=== PATIENT | female | born 1930 | race Caucasian/White ===

== ENCOUNTER 2018-02-19 19:35 | Emergency (ER) | payer MEDICARE, OTHER ==
[~2018-02-19] VITALS: Ht 162.6 cm; Wt 54.4 kg
[~2018-02-19 19:35] MED LIST: CALCIUM COMPLETE PO; CYCLOBENZAPRINE5 MG PO; CYMBALTA PO; FENOFIBRATE145 MG PO; GLIMEPIRIDE4 MG PO; LOSARTAN POTAS100 MG PO; METFORMIN HCL500 MG PO; METOPROLOL TART50 MG PO; OMEPRAZOLE40 MG PO; POTASSIUM PO; TRAMADOL PO
--- NOTE | 2018-02-19 21:08 | Diagnostic Imaging Report ---
Examination: CT head without contrast Clinical Indication: Fall. Head injury. Technique: Transaxial noncontrast images from the skull base through the vertex were obtained. Sagittal and coronal reformatted images were done. Comparison: None. Findings: Scalp: No abnormalities. Bones: Intact. No fractures. No blastic or lytic lesions. Brain sulci: Moderate volume loss for patient's age. Ventricles: No hydrocephalus. Extra-axial space: No abnormalities. Parenchyma: There are confluent areas of low-attenuation within subcortical and periventricular white matter, nonspecific, but could represent microvascular ischemic disease. No masses, hemorrhage, or acute or chronic cortical based vascular insults. Suprasellar region: No abnormalities. Craniocervical junction: The foramen magnum is patent. No Chiari one malformation. Incidental findings: Atherosclerotic calcification of the cavernous and supraclinoid internal carotid and V4 segments of the bilateral vertebral arteries. Impression: 1. No acute intracranial finding. 2. Moderate to severe chronic microvascular ischemic change and moderate volume loss. Signed by: Dr. Sara Stiles M.D. on 02/19/2018 9:04 PM
--- NOTE | 2018-02-19 21:12 | Diagnostic Imaging Report ---
Examination: CT CERVICAL SPINE WITHOUT CONTRAST HISTORY:Neck pain. Fall. COMPARISON:None. TECHNIQUE: Multidetector helical axial images were obtained without contrast from the foramen magnum to T1. Coronal and sagittal reformatted images were done. Bone and soft tissue windows were evaluated. FINDINGS: Alignment:Normal alignment and lordosis. Vertebrae: Normal height and density. No acute fracture, infection or neoplasm. Disc space heights: Normal height. Caliber of spinal canal: Developmentally normal. Posterior fossa and craniocervical junction: Foramen magnum patent. No Chiari 1 malformation. Soft tissues: Atherosclerotic calcification of the bilateral common and proximal cervical internal carotid arteries and carotid bifurcations. Degenerative changes: Diffuse disc bulges from C4 through C7 without canal stenosis. MIld right facet arthropathy from C3 through C5 and on the left from C2 through C7. IMPRESSION: No acute abnormalities. Signed by: Dr. Sara Stiles M.D. on 02/19/2018 9:08 PM
--- NOTE | 2018-02-19 21:45 | Diagnostic Imaging Report ---
EXAM: PELVIS AP 1-2 VIEWS INDICATION: Fall, lower back pain COMPARISON: None FINDINGS: BONES: No acute fractures. JOINTS: No malalignment. SOFT TISSUES: Calcified injection granuloma projects over the right iliac bone. IMPRESSION: No evidence of an acute pelvic fracture. Signed by: Dr. Ama Drake M.D. on 02/19/2018 9:41 PM
--- NOTE | 2018-02-19 21:47 | Diagnostic Imaging Report ---
EXAM: LUMBAR SPINE, AP, lateral, bilateral oblique and coned lateral view INDICATION: Fall, back pain COMPARISON: None FINDINGS: BONES: 6 lumbar type vertebral bodies. Grade 1 anterolisthesis of L4 with respect to L5. Chronic appearing compression deformities of approximately 50% each of the L1 and L2 vertebral bodies. No lytic or blastic lesions. DISCS: Degenerative disc predominantly at L6/S1 and L1/L2 JOINTS: Bilateral facet arthropathy predominantly L4/L5 L5/L6 and L6/S1. SOFT TISSUES: Unremarkable IMPRESSION: Chronic appearing compression fractures and degenerative changes as described above. Signed by: Dr. Ama Drake M.D. on 02/19/2018 9:44 PM
[2018-02-19 23:32] VITALS: BP 154/88
== END 2018-02-19 23:34 | disposition home or self-care (01) ==
LOC: ER 19:35
DX: S00.83XA Contusion of other part of head, initial encounter (principal); S00.81XA Abrasion of other part of head, initial encounter; M54.2 Cervicalgia; M54.5 Low back pain; W01.0XXA Fall on same level from slipping, tripping and stumbling without subsequent striking against object, initial encounter; Y92.008 Other place in unspecified non-institutional (private) residence as the place of occurrence of the external cause; I10 Essential (primary) hypertension; E11.9 Type 2 diabetes mellitus without complications
CPT/HCPCS: 70450; 72110; 72125; 72170; 99283

== ENCOUNTER 2018-12-02 09:29 | Observation (INO) | payer MEDICARE, OTHER ==
[~2018-12-02] VITALS: Ht 162.6 cm; Wt 49.9 kg
--- OUTSIDE RECORDS SUMMARY | 2018-12-02 09:32 | XMS REPORT | Clinical Summary ---
Author Author [facility] Organization [facility] Address Unknown Phone Unavailable Care Team Providers Care Roll Slicing Machine Tender Name Role Phone Elpidio Walsh MD PCP Allergies No Known Allergies Medications End Date Status Medication Sig Dispensed Refills Start Date Active omeprazole (PriLOSEC) 40 0 MG capsule 7 Active amLODIPine (NORVASC) 5 mg 0 tablet 7 Active glimepiride (AMARYL) 4 MG 0 tablet 7 Active metoprolol tartrate 0 (LOPRESSOR) 50 mg tablet 7 Active meclizine (ANTIVERT) 12.5 0 mg tablet 7 Active baclofen (LIORESAL) 10 MG 0 tablet 7 Active aspirin (ECOTRIN) 81 MG Take 81 mg by 0 enteric coated tablet mouth daily. Active Problems Not on file Family History Medical History Relation Name Comments Breast cancer Sister Relation Name Status Comments Sister Social History Date Tobacco Use Types Packs/Day Years Used Never Smoker Alcohol Use Drinks/Week oz/Week Comments Defer Sex Assigned at Date Recorded Not on file Industry Job Start Date Occupation Not on file Not on file Not on file Travel End Travel History Travel Start No recent travel history available. Last Filed Vital Signs Not on file Plan of Treatment Health Maintenance Due Date Last Done Comments SHINGLES VACCINES (#1) 1979 65+ PNEUMOCOCCAL VACCINE 1994 (1 of 2 - PCV13) PNEUMOCOCCAL 1994 POLYSACCHARIDE VACCINE AGE 65 AND OVER INFLUENZA VACCINE 02/11/2019 Results Not on fileafter 12/01/2017 Insurance Type Payer Benefit Subscriber ID Effective Phone Address Plan / Dates Group Medicare MEDICARE MEDICARE xxxxxxxxxx 1994-P NADE[place], PART A AND resent [place] B PPO CIGNA CIGNA PPO xxxxxxxxxxx 2004-P resent Luh Kelsey Third Self 1930 [phone] (Home) [address] [place] [id number] Liability Advance Directives Patient has advance care planning documents on file. For more information, kenya calzada contact: Nadeem Munguia [address] [place] [address]
--- OUTSIDE RECORDS SUMMARY | 2018-12-02 09:32 | XMS REPORT | Clinical Summary ---
Author Author ISA [facility] Address Unknown Phone Unavailable Care Team Providers Care Airplane Gastank Liner Assembler Name Role Phone System, Provider Not In PCP Unavailable Allergies No Known Allergies Medications End Date Status Medication Sig Dispensed Refills Start Date Active ascorbic acid (VITAMIN C) Take 1,000 mg 0 1000 MG tablet by mouth daily. Active potassium gluconate 550 Take by 0 mg Tab mouth. Active docusate sodium (COLACE) Take 100 mg 0 100 MG capsule by mouth 2 (two) times daily. Active glimepiride (AMARYL) 4 MG Take 4 mg by 0 tablet mouth every morning before breakfast. Active metoprolol (LOPRESSOR) 50 Take 50 mg by 0 MG tablet mouth 2 (two) times daily. Active cyclobenzaprine Take 5 mg by 0 (FLEXERIL) 5 MG tablet mouth 3 (three) times daily as needed. Active ezetimibe-simvastatin Take 1 tablet 0 (VYTORIN) 10-20 mg per by mouth tablet nightly. Active alendronate (FOSAMAX) 70 Take 70 mg by 0 MG tablet mouth every 7 days. Take in the morning with a full glass of water, on an empty stomach, and do not take anything else by mouth or lie down for the next 30 min. Active metFORMIN (GLUCOPHAGE) Take 500 mg 0 500 MG tablet by mouth 2 (two) times daily with breakfast and dinner. Active Problems Problem Noted Date Arm numbness 07/25/2013 TIA (transient ischemic attack) 07/24/2013 Social History Date Tobacco Use Types Packs/Day Years Used Never Smoker Alcohol Use Drinks/Week oz/Week Comments Yes Sex Assigned at Date Recorded Not on file Industry Job Start Date Occupation Not on file Not on file Not on file Travel End Travel History Travel Start No recent travel history available. Last Filed Vital Signs Not on file Plan of Treatment Not on file Results Not on fileafter 12/01/2017 Insurance Payer Benefit Subscriber ID Type Phone Address Plan / Group CIGNA - COMMERCIAL CIGNA xxxxxxxxxxx Comm INDEMNITY MEDICARE MEDICARE A xxxxxxxxxx Medicare B Advance Directives For more information, please contact: [place] [phone] [place] [address] Date Inactivated Comments Code Status Date Activated 07/26/2013 4:36 PM All possible measures except cardiac massage, intubation, mechanical ventilation, and defibrillation will be initiated except as specified in the code status order. The Attending Practitioner and House Staff (if applicable) will be notified STAT upon cessation of vital signs, but no code will be called. Code TWO 07/25/2013 6:43 AM
[2018-12-02] MEDS ORDERED: SODIUM CHLORIDE 0.9% 1000ML 1,000 ML IV STA (10:01)
--- NOTE | 2018-12-02 10:24 | Diagnostic Imaging Report ---
Examination: Single AP view of the chest. COMPARISON: None. INDICATION: Dizziness and weakness x1 week DISCUSSION: The patient is substantially rotated to the right. The lungs are well-inflated and without focal airspace consolidation, pleural effusion, or pneumothorax. Tortuous thoracic aorta with atherosclerotic calcification. Normal heart size, no overt pulmonary edema. No acute osseous abnormalities. Posttraumatic deformity of the midshaft of the right clavicle. Healed left-sided rib fracture deformities. IMPRESSION: No acute cardiopulmonary abnormality. Signed by: Dr. Tyson Hinds M.D. on 12/02/2018 10:21 AM
[2018-12-02] MEDS ORDERED: CEFTRIAXONE SOD 1 GM/NS 50 ML 50 ML IV ONE (10:30)
[2018-12-02 10:34] LABS: BASOPHILS % 0.3 % (0.0-1.0); EOSINOPHILS # (AUTO) 0.2 (0.0-0.4); EOSINOPHILS % 2.5 % (0.0-6.0); HEMATOCRIT 38.3 % (34.2-44.1); HEMOGLOBIN 12.2 g/dL (12.0-16.0); LYMPHOCYTES # (AUTO) 2.1 (1.0-3.2); LYMPHOCYTES % 24.3 % (18.0-39.1); MEAN CORPUSCULAR HEMOGLOBIN 29.5 pg (28-32); MEAN CORPUSCULAR HGB CONC 31.9 g/dL (31-35); MEAN CORPUSCULAR VOLUME 92.5 fL (81-99); MONOCYTES % 10.9 % (4.4-11.3); NEUTROPHILS # (AUTO) 5.4 (2.1-6.9); NEUTROPHILS % 61.3 % (38.7-80.0); PLATELET COUNT 338 x10e3/uL (140-360); RED BLOOD COUNT 4.14 x10e6/uL (3.6-5.1); RED CELL DISTRIBUTION WIDTH 13.3 % (11.7-14.4)
[2018-12-02 10:42] LABS: INR 0.92; PROTHROMBIN TIME 12.9 seconds (11.9-14.5)
[2018-12-02 10:43] LABS: PARTIAL THROMBOPLASTIN TIME 26.2 seconds (23.8-35.5)
[2018-12-02 10:52] LABS: ALBUMIN/GLOBULIN RATIO 1.2 (0.8-2.0); ANION GAP 13.6 mmol/L (8-16); CALCIUM 10.5 mg/dL (8.4-10.2); CREATININE, SERUM 1.26 mg/dL (0.57-1.11); POTASSIUM 3.6 mmol/L (3.5-5.1)
[2018-12-02 10:58] LABS: CREATINE KINASE MB 0.7 ng/mL (0-5.0)
[2018-12-02 10:58] LABS: COLOR,URINE YELLOW (YELLOW)
[2018-12-02 10:59] LABS: CLARITY,URINE CLOUDY (CLEAR); LEUKOCYTE ESTERASE ,URINE 1+ (NEGATIVE)
[2018-12-02 11:00] LABS: BILIRUBIN,URINE NEGATIVE (NEGATIVE); KETONES,URINE NEGATIVE (NEGATIVE); NITRITE,URINE POSITIVE (NEGATIVE); PROTEIN,URINE DIPSTICK 2+ (NEGATIVE); URINE UROBILINOGEN 0.2 mg/dL (0.2 - 1)
[2018-12-02 11:17] LABS: BACTERIA,URINE MODERATE /HPF; EPITHELIAL CELLS,URINE RARE /LPF
[2018-12-02] MEDS ORDERED: SODIUM CHLORIDE 0.9% 1000ML 1,000 ML IV SCH (11:39)
[2018-12-02] MEDS ORDERED: ONDANSETRON HCL INJ 2MG/ML 2ML 2 MG/ML VIAL IV PRN (11:45)
[2018-12-02] MEDS: CEFTRIAXONE SOD 1 GM/NS 50 ML 50 ML IV SCH (11:49)
--- OUTSIDE RECORDS SUMMARY | 2018-12-02 12:04 | XMS REPORT | Clinical Summary ---
Author Author ISA [facility] Address Unknown Phone Unavailable Care Team Providers Care S Iron Worker Name Role Phone System, Provider Not In [...] Advance Directives For more information, please contact: [place] [phone] [place] [address] Date Inactivated Comments Code Status [...]
--- OUTSIDE RECORDS SUMMARY | 2018-12-02 12:04 | XMS REPORT | Clinical Summary ---
Author Author [facility]em [facility] Organization [facility] Address Unknown Phone Unavailable Care Team Providers Care Wrapper Selector Name Role Phone Elpidio Walsh MD PCP [...] 2004-P resent Luh Kelsey Third Self 1930 [phone] (Home) [address] [place] [id number] Liability Advance Directives Patient has advance care planning documents on file. For more information, kenya calzada contact: Nadeem Munguia [address] [place] [address]
[2018-12-02] MEDS ORDERED: BACLOFEN10 MG PO (12:33)
--- NOTE | 2018-12-02 12:50 | NUR ---
RECEIVED PT LYING IN STRETCHER, NO ACUTE DISTRESS NOTED, DENIES PAIN. SAFELY TRANSFERRED TO BED. ORIENTED TO ROOM AND USE OF CALL LIGHT. INSTRUCTED TO CALL FOR ASSISTANCE USING CALL LIGHT.
[2018-12-02 13:00] VITALS: BP 173/86
[2018-12-02 13:36] VITALS: BP 173/86
[2018-12-02 13:38] VITALS: BP 173/86
[2018-12-02 14:00] VITALS: BP 159/60
[2018-12-02] MEDS ORDERED: DEXTROSE 50% SYRINGE 50 ML IV PRN (15:15)
[2018-12-02] MEDS ORDERED: HYDRALAZINE HCL 20 MG/ML VIAL IV PRN (15:30)
[2018-12-02] MEDS ORDERED: SODIUM CHLORIDE 0.45% 1,000 ML IV ONE (15:30)
--- NOTE | 2018-12-02 15:49 | History and Physical ---
CHIEF COMPLAINT: Dizziness and fatigue. HISTORY OF PRESENT ILLNESS: The patient is an 88-year-old woman with a history of diabetes and hypertension. She had a vertebral compression fracture that required kypho-vertebroplasty recently. She also reports cold feet and pain in her left hip. Most recently, she noted worsening dizziness and weakness over the past week. She feels more lightheaded and dizzy when she stands up. She does not complain of chest pain. There is no nausea or vomiting. She does not complain of any focal weakness. PAST SURGICAL HISTORY: 1. Status post appendectomy. 2. Status post kypho-vertebroplasty. PAST MEDICAL HISTORY: 1. Hypertension. 2. Diabetes. 3. Anemia. SOCIAL HISTORY: The patient never smoked. She has never been an alcohol user. FAMILY HISTORY: Family history is noncontributory. ALLERGIES: NO KNOWN DRUG ALLERGIES. REVIEW OF SYSTEMS: The patient denies any headache. She does note dizziness and spinning in her head. She does not complain of neck pain. She is not complaining of swollen glands. She has no chest pain. She has no shortness of breath or cough. She has no nausea or vomiting. She does complain of pain in the left hip. She is also having cold feet. PHYSICAL EXAMINATION: VITAL SIGNS: The patient is afebrile. Blood pressure is 159/60 and the pulse is 70. Saturation is 97% on room air. HEENT: No facial swelling or erythema. The nasal mucosa is normal. LYMPHATIC: No submandibular, cervical, or supraclavicular adenopathy. CARDIAC: Regular rate and rhythm with normal S1, S2. There are no murmurs or rubs heard. LUNGS: Auscultation of lungs shows clear breath sounds bilaterally. There is no wheezing. ABDOMEN: Soft, nontender. There is no rebound or guarding. EXTREMITIES: No leg edema. There is cold feet with poor pulses in the lower extremities. The patient also has some pain with passive flexion of the left hip. LABORATORY DATA: White blood cell count is 8.7 and hemoglobin 12.2. The platelet count is 338. BUN to creatinine ratio is 23 to 1.36. The calcium is 10.5, and the glucose is 182. Urinalysis shows 10-20 white blood cells. IMPRESSION: 1. Dizziness. 2. Acute kidney injury. 3. Hypercalcemia. 4. Diabetes. 5. Hypertension. 6. Peripheral vascular disease. 7. Osteoporosis with prior pathological fracture. PLAN: 1. The patient will have IV fluids. 2. Echocardiogram and carotid duplex. 3. Cardiology consultation. 4. CT scan of the head and Neurology consultation. 5. X-ray of hip. MD ALISON Daniels/KRUNAL /[id number]
[2018-12-02 16:25] VITALS: BP 165/80
[2018-12-02] MEDS: INSULIN REGULAR, HUMAN 100 UNIT/1 ML 3ML VIAL SQ SCH ×2 (16:46→21:11)
--- NOTE | 2018-12-02 18:45 | Diagnostic Imaging Report ---
ADDENDUM #1 Agree with preliminary report. Signed by: Dr. Ti Boland M.D. on 12/02/2018 7:53 PM ORIGINAL REPORT Exam: Head CT without contrast History: 88-year-old female with dizziness Comparison studies: Head CT from 02/19/2018 Technique: Axial images were obtained from the skull base to the vertex. Coronal and sagittal reconstructions obtained from the axial data. Dose modulation, iterative reconstruction, and/or weight based adjustment of the mA/kV was utilized to reduce the radiation dose to as low as reasonably achievable. Findings: Scalp/skull: No abnormalities. No fractures, blastic or lytic lesions. Extra-axial spaces: No masses. No fluid collections. Brain sulci: Moderately enlarged. Ventricles: Moderate compensatory dilatation. No hydrocephalus. Parenchyma: Confluent hypodensities in the supratentorial white matter are small vessel ischemic changes. Unchanged hypodensity in the left marcin consistent with chronic vascular insult. No masses, hemorrhage, acute or chronic cortical vascular insults. Sellar/suprasellar region: No abnormalities Craniocervical junction: Patent foramen magnum. No Chiari one malformation. Incidental: Calcified atherosclerotic plaque in the carotid siphons and intradural segments of both vertebral arteries. IMPRESSION: 1. No acute abnormalities. Specifically, no mass, hemorrhage or acute vascular territorial insult. 2. No change compared to head CT from 02/19/2018. Chronic findings: * Severe supratentorial microvascular ischemic changes with moderate generalized volume loss. * Calcified atherosclerotic plaque in the bilateral ICAs and intracranial vertebral arteries. Preliminary report dictated by Dr. Holly Medeiros, Neuroradiology Fellow. A final report by the attending radiologist will follow. Signed by: Holly Medeiros MD on 12/02/2018 6:41 PM
--- NOTE | 2018-12-02 19:12 | Diagnostic Imaging Report ---
EXAMINATION: Left Hip Films CLINICAL HISTORY:Left hip pain COMPARISON: AP pelvis 02/19/2018 DISCUSSION: Generalized osteopenia, which limits evaluation of the bony structures. No acute, displaced fractures or dislocations. Minimal degenerative changes in the left hip joint. No lytic or blastic lesions. Nonobstructive bowel gas pattern with mild amount of retained stool in the rectum. Calcified injection granuloma projects over the right iliac bone. IMPRESSION: 1. No acute abnormalities. Signed by: Dr. Farhan Ballesteros M.D. on 12/02/2018 7:09 PM
--- NOTE | 2018-12-02 19:50 | NUR ---
Continuity of care received. Assessment completed. Pt A&O and in no apparent distress. Pt on room air and no tele. All safety measures ensured, bed alarm on and pt call vogel near. Pt encouraged to use call vogel for assistance.
[2018-12-02 20:00] VITALS: BP 138/63
[2018-12-03] VITALS: BP 145/74
[2018-12-03 04:00] VITALS: BP 123/67
[2018-12-03 05:33] LABS: BASOPHILS % 0.2 % (0.0-1.0); EOSINOPHILS # (AUTO) 0.3 (0.0-0.4); EOSINOPHILS % 3.3 % (0.0-6.0); HEMATOCRIT 32.1 % (34.2-44.1); HEMOGLOBIN 10.6 g/dL (12.0-16.0); LYMPHOCYTES % 32.3 % (18.0-39.1); MEAN CORPUSCULAR HEMOGLOBIN 29.9 pg (28-32); MEAN CORPUSCULAR VOLUME 90.4 fL (81-99); MONOCYTES # (AUTO) 1.2 (0.2-0.8); MONOCYTES % 12.2 % (4.4-11.3); NEUTROPHILS # (AUTO) 4.8 (2.1-6.9); NEUTROPHILS % 51.5 % (38.7-80.0); PLATELET COUNT 313 x10e3/uL (140-360); RED BLOOD COUNT 3.55 x10e6/uL (3.6-5.1); RED CELL DISTRIBUTION WIDTH 13.2 % (11.7-14.4)
[2018-12-03 06:00] LABS: ALBUMIN 3.2 g/dL (3.5-5.0); ALBUMIN/GLOBULIN RATIO 1.2 (0.8-2.0); CALCIUM 9.3 mg/dL (8.4-10.2); CREATININE, SERUM 1.02 mg/dL (0.57-1.11)
--- NOTE | 2018-12-03 06:45 | NUR ---
Pt resting on right side. Pt has no complaints and in no apparent distress. All safety measures ensured, bed alarm on, and pt call vogel near. Pt encouraged to use call vogel for assistance.
[2018-12-03 07:55] VITALS: BP 152/72
[2018-12-03] MEDS: INSULIN REGULAR, HUMAN 100 UNIT/1 ML 3ML VIAL SQ SCH ×4 (08:01→20:38)
[2018-12-03 08:04] VITALS: BP 152/72
[2018-12-03] MEDS: PANTOPRAZOLE SOD 40 MG TABEC PO SCH (08:04)
[2018-12-03] MEDS: GLIMEPIRIDE 2 MG TAB PO SCH (08:04)
[2018-12-03] MEDS: METOPROLOL TARTRATE 50 MG TAB PO SCH (08:04)
[2018-12-03] MEDS ORDERED: GLIMEPIRIDE 2 MG PO SCH (09:00)
[2018-12-03] MEDS: MECLIZINE HCL 12.5 MG TAB PO SCH ×3 (11:54→23:06)
[2018-12-03] MEDS: CEFTRIAXONE SOD 1 GM/NS 50 ML 50 ML IV SCH (11:54)
[2018-12-03 12:02] VITALS: BP 154/72
--- NOTE | 2018-12-03 13:15 | Diagnostic Imaging Report ---
Exam: Brain MRI without IV contrast History: Altered mental status Comparison studies: Head CT 12/02/2018. Technique: 3-D T1 with axial, coronal and sagittal reformats, axial DWI, axial T2*GRE, axial T2 FLAIR and axial T2. Intravenous contrast: None Findings: Scalp: Normal in signal. No masses. Bone marrow: Normal in signal intensity. Brain sulci: Moderately prominent. Ventricles: Moderate compensatory dilatation. No hydrocephalus. Extra axial spaces: No mass, no fluid collection. Parenchyma: No mass, acute hemorrhage or acute ischemia. Scattered and confluent T2 FLAIR hyperintense signal changes in the supratentorial white matter are nonspecific but most compatible with chronic microvascular ischemic changes. There are small chronic lacunar infarcts in the marcin and in the head of the right caudate nucleus. Punctate T2 FLAIR hyperintense focus in the left cerebellum may reflect chronic small chronic ischemic insult. Unchanged moderate cerebral volume loss. There is also moderate volume loss within the cerebellum and brainstem. Mild concavity along the superior margin of the midbrain as seen on the sagittal T1 sequence is nonspecific but can be seen with supranuclear palsy in the appropriate clinical setting. Suprasellar region: No abnormalities. Craniocervical junction: Patent foramen magnum. No Chiari malformation. Vessels: Normal flow-voids in the arteries and sinuses. Incidental findings: Lens replacements for previous scattered surgery. IMPRESSION: No acute intracranial abnormalities. Chronic findings: 1. Severe chronic microvascular ischemic changes. 2. Small lacunar infarcts in the marcin and right caudate nucleus. 3. Moderate brain volume loss as described Signed by: Dr. Tyson Benavidez M.D. on 12/03/2018 1:11 PM
--- NOTE | 2018-12-03 15:47 | NUR ---
received copy of medical POA document. filed in chart. Medical POA- Linda Cao [phone].
[2018-12-03] MEDS ORDERED: FLUCONAZOLE 100 MG TAB PO NR (16:00)
[2018-12-03 16:41] VITALS: BP 156/83
--- NOTE | 2018-12-03 17:41 | Progress Note ---
DATE: SUBJECTIVE: The patient has less dizziness. She is not complaining of hip pain. She notes some burning when she urinates. She is still awaiting evaluation by Neurology and Cardiology. OBJECTIVE: VITAL SIGNS: The patient is afebrile. The blood pressure is 154/72 and saturation is 96%. HEENT: Shows no facial swelling or erythema. CARDIAC: Reveals regular rate and rhythm with normal S1, S2. There are no murmurs or rubs heard. LUNGS: Auscultation of lungs reveals clear breath sounds bilaterally. There is no wheezing. ABDOMEN: Soft, nontender. There is no rebound or guarding. EXTREMITIES: Show no leg edema or calf tenderness. There are some poor pulses peripherally. IMPRESSION: 1. Acute kidney injury. 2. Dehydration. 3. Hypercalcemia. 4. Peripheral vascular disease. 5. Diabetes. 6. Osteoporosis with prior pathological fracture. PLAN: 1. Complete IV hydration. 2. Await Cardiology evaluation. 3. Physical therapy. Too Davis MD [facility]/ASHTYNL /[id number]
--- NOTE | 2018-12-03 17:47 | NUR ---
Nutrition Intervention Note RD Recommendation(s) for Physician: -Continue current diet as ordered -Rec Glucerna BID to increase protein-calorie intake The patient meets criteria for MODERATE protein-calorie malnutrition. Plan of Care: RD following, monitoring for tolerance and adequacy, ONS rec Nutrition reason for involvement: Nutrition Risk Trigger MST RD Assessment 12/03: Chart reviewed. 88yo F, who was admitted for dizziness. Visited pt in the room. Pt reported good appetite with 100% observed lunch intake. No complains of nausea or vomiting. Pt denied any chewing or swallowing difficulty. Pt reported 10-15lbs of gradual weight loss in the last 6 months. Pt stated I just dont feel like eating sometimes. Moderate muscle and fat loss noted upon NFPA. RD discussed the need to increase protein-calorie intake in order to prevent further weight loss. Provided recommendation for several diabetic friendly protein shakes in the market. Pt is also willing to try Glucerna while in the hospital. Will continue to monitor and follow. Principal Problems/Diagnoses: UTI, weakness PMH: HTN, DM, Anemia GI: abdomen flat, soft, non-tender Skin: intact Labs: (12/03) Na 134 L, Glucose 138 H Meds: abx, lopressor, protonix Ht: 64in Wt: 110lb BMI: 18.9kg/m2 IBW: 120lb Malnutrition Evaluation (12/03) The patient meets criteria for MODERATE protein-calorie malnutrition. Energy intake: <75% of estimated energy requirements for >3 months Weight loss: >10% in 6 months (Chronic) Fat loss: Moderate clavicle protrusion Muscle loss: Moderate temporal depression Supporting Evidence: Fluid accumulation: N/A Functional Status: measurably reduced Nutrition Prescription (Diet Order): ADA 1800 Estimated Nutritional Needs: Calories: 1250 1500kcal(25-30kcal/kg/d) Weight used: ABW Protein: 75 100g(1.5-2g/kg/d) Weight used: ABW Diet Adequacy: Meeting calorie needs, Not meeting protein needs Diet Education Needs Assessment: Diet education not indicated. Nutrition Care Level: low Nutrition Diagnosis: Moderate malnutrition related to inadequate oral intake as evidenced by weight loss, decreased PO intake, and moderate muscle/fat loss. Goal: Patient will meet 75-100% of estimated needs by follow up Progress: N/A Interventions: carbohydrate-modified diet, Commercial beverage Monitoring/Evaluation: total energy intake, Total protein intake, Modified diet, Liquid supplement, Weight change Signed: Amber Medina, MS, RD, LD
[2018-12-03] MEDS: ATORVASTATIN 20 MG TAB PO SCH (20:38)
--- NOTE | 2018-12-03 23:27 | Consultation ---
DATE OF CONSULTATION: Cardiology Consultation The patient is seen in the room. The patient is admitted yesterday under Dr. Too Davis. Preoperative diagnoses. 1. The patient mainly complains of dizziness. According to her, she had bilateral carotid stents put in the past, many years ago at [facility]. 2. Hypertension. 3. Past history of type 2 diabetes mellitus. HISTORY OF PRESENT ILLNESS: Ms. Luh Kelsey, a pleasant 88-year-old woman, is admitted, mainly complains of some dizziness and also complains of some weakness for the last couple of weeks, and the patient also had a history of some lightheadedness. At this time, Neurology has seen and MRI and CT scan of brain performed. There is no evidence of any acute cerebrovascular accident. 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 Please refer to the brain images. I confined myself to Cardiovascular System. At this time, the patient denies any chest pain. No history of myocardial infarction. Only thing she got is hypertension, and the patient was not sure whether she had a coronary angiogram, but she is telling probably in the past she had, but does not recall. The patient at this time did not have any major surgeries also except some foot surgery. The patient has some history of anemia and diabetes. Also, she mentioned about it. The patient is single, living alone, and able to take care of herself. The patient is not taking the blood pressure medications and I believe as per my nurses' information, she does not take the medicines also properly, but accordingly she takes her medications, please see the admission reconciliation medications. At this time, clinically, no heart murmur. There is no pedal edema. The patient's bilateral pedal pulses are normal. No evidence of any arterial occlusions by clinical exam, but the patient complains of left hip pain. The patient has some vertebroplasty done in the past in the neck possibly, also in the low back, but she is not sure. At this time, echocardiogram shows the patient's EF 60% to 65%. She is having mild aortic valve stenosis, otherwise EF is 60% to 65%. Carotid duplex scan performed and shows only plaques less than 50% right carotid bulb. Left internal carotid artery, no significant lesions noted. However, I was not able to see any stents or sometimes very hard to see the stents, as they have been done many years ago, but the patient states she had a carotid stent done. At this time, there is no need for further cardiac evaluation. She is doing well in my point of view except for the blood pressure, hypertension, dizziness, and possible old cerebrovascular accident. Continue all present medications. Renal function shows BUN to creatinine ratio 1.36. Otherwise, she is in a fairly good shape from a cardiovascular point of view. In my point of view, there is no need for further cardiac evaluation. IMPRESSION: Hypertension, dizziness. No significant carotid lesions. The patient is slightly anxious. Otherwise, the patient can be discharged from a cardiac point of view at the discretion of primary physician. MD STEFANI Babb/KRUNAL /[id number]
[2018-12-04] VITALS (8 sets, daily range): BP systolic 129–179; BP diastolic 60–91
[2018-12-04] MEDS: MECLIZINE HCL 12.5 MG TAB PO SCH ×3 (05:15→17:49)
[2018-12-04] MEDS: INSULIN REGULAR, HUMAN 100 UNIT/1 ML 3ML VIAL SQ SCH ×4 (07:30→22:04)
[2018-12-04] MEDS: GLIMEPIRIDE 2 MG TAB PO SCH (08:49)
[2018-12-04] MEDS: ASPIRIN 81 MG ENTERIC COATED PO SCH (08:50)
[2018-12-04] MEDS: METOPROLOL TARTRATE 50 MG TAB PO SCH (08:50)
[2018-12-04] MEDS: PANTOPRAZOLE SOD 40 MG TABEC PO SCH (08:50)
[2018-12-04] MEDS: CEFTRIAXONE SOD 1 GM/NS 50 ML 50 ML IV SCH (14:40)
--- NOTE | 2018-12-04 15:36 | NUR ---
Per Dr Chad Davis hold discharge for tomorrow morning since, the patient were saying nobody at @ home to take care of her
--- NOTE | 2018-12-04 17:50 | NUR ---
Patient will benefit from the use of a RW for safety at home vs rollator. Addendum: 12/04/18 at 1751 by Tirso Stewart PT Amended: Links added.
[2018-12-04] MEDS: ATORVASTATIN 20 MG TAB PO SCH (22:00)
[2018-12-05 00:27] VITALS: BP 160/75
[2018-12-05] MEDS: MECLIZINE HCL 12.5 MG TAB PO SCH ×2 (01:58→05:59)
--- NOTE | 2018-12-05 01:58 | Discharge Summary ---
DISCHARGE DIAGNOSES: 1. Acute kidney injury. 2. Dehydration. 3. Peripheral vascular disease. 4. Diabetes. 5. Osteoporosis with pathological fracture. 6. Dizziness. CONSULTING PHYSICIANS: 1. Dr. Byrd of Cardiology. 2. Dr. Simpson of Neurology. RADIOGRAPHIC DATA: 1. X-ray of the hip showed no acute abnormalities. 2. X-ray of the chest showed no acute abnormalities. 3. CT scan of the head showed supratentorial microvascular changes and moderate generalized volume loss. The patient also had atherosclerotic plaque in the internal carotid arteries bilaterally. 4. MRI showed severe chronic microvascular ischemic changes and small lacunar infarcts in the marcin and right caudate nucleus. There was moderate brain volume loss as noted above. HISTORY OF PRESENT ILLNESS: The patient is an 88-year-old woman. She has a history of diabetes and hypertension. She had a recent vertebral compression fracture. She came to the hospital complaining of dizziness and weakness. Her creatinine was elevated on admission. HOSPITAL COURSE: The patient was admitted. She received IV fluids. Her creatinine improved with this. She also had less dizziness. The patient was evaluated by Cardiology. She had an arterial duplex study of the carotid arteries that showed no hemodynamically significant stenosis. She also had an echocardiogram that showed a preserved ejection fraction and only minor valvular disease. She was seen in consultation by Neurology as well. She felt better at the time of discharge and was eager to go home. DISPOSITION: The patient will be discharged home. Apparently, her outpatient physician is retiring. She will make an appointment with either Dr. Fernando Bernstein or Dr. Russell Lara. MD ALISON Daniels/KRUNAL /[id number]
[2018-12-05 04:29] VITALS: BP 144/76
--- NOTE | 2018-12-05 07:15 | NUR ---
report given to day nurse. patient is resting in bed. bed is in lowest position and call vogel is within reach.
[2018-12-05] MEDS: INSULIN REGULAR, HUMAN 100 UNIT/1 ML 3ML VIAL SQ SCH (07:30)
[2018-12-05 07:45] VITALS: BP 140/80
[2018-12-05 08:10] VITALS: BP 140/80
[2018-12-05] MEDS: GLIMEPIRIDE 2 MG TAB PO SCH (08:28)
[2018-12-05] MEDS: ASPIRIN 81 MG ENTERIC COATED PO SCH (08:28)
[2018-12-05] MEDS: METOPROLOL TARTRATE 50 MG TAB PO SCH (08:29)
[2018-12-05] MEDS: PANTOPRAZOLE SOD 40 MG TABEC PO SCH (08:29)
--- NOTE | 2018-12-05 10:06 | NUR ---
patient discharged home, , IV canula removed with tip intact, no ss of infiltration noted, he aware of f/up appointments. transported via wheelchair to [facility], not in any distress or pain. care technician at bed side taking patient home. according to patient she have Home health already
--- NOTE | 2018-12-05 12:34 | NUR ---
RECEIVED CALL FROM NIECE FROM [place], CONCERNED ABOUT PT RETURNING HOME. ASKING FOR INFORMATION FOR HOME HEALTH AND PROVIDERS, GAVE RESOURCES OVER PHONE SPOKE WITH MD TO GET ORDER FOR HOME HEALTH. WENT TO SPEAK WITH PT, PT STATES HOME HELATH ALREADY IN HOME, ASKED NURSE TO CANCEL ORDER, GAVE SENIOR RESOURCE GUIDE FOR FUTURE FOLLOW UP.
== END 2018-12-05 10:12 | disposition home or self-care (01) ==
LOC: ER 09:29 → ERHOLD 12:00 → IMCU 12:59
PROVIDERS: ADMIT Internal Medicine Critical Care Medicine; ATTEND Internal Medicine Critical Care Medicine
DX: N17.9 Acute kidney failure, unspecified (principal); N39.0 Urinary tract infection, site not specified; R42 Dizziness and giddiness; R53.1 Weakness; I10 Essential (primary) hypertension; D64.9 Anemia, unspecified; M54.9 Dorsalgia, unspecified; E83.52 Hypercalcemia; E11.51 Type 2 diabetes mellitus with diabetic peripheral angiopathy without gangrene; M80.08XD Age-related osteoporosis with current pathological fracture, vertebra(e), subsequent encounter for fracture with routine healing; Z86.73 Personal history of transient ischemic attack (TIA), and cerebral infarction without residual deficits; I35.0 Nonrheumatic aortic (valve) stenosis; M25.552 Pain in left hip; Z79.84 Long term (current) use of oral hypoglycemic drugs
CPT/HCPCS: 36415 ×3; 70450; 70551; 71045; 73502; 80053 ×2; 81001; 82550; 82553; 82948 ×4; 84484; 85025 ×2; 85610; 85730; 87086; 87186; 93005; 93306; 93880; 97116; 97161; 97530; 99284; G0378 ×4; J0360; J0696 ×3; J1817; J7030; J8597 ×3; S0164 ×3

== ENCOUNTER 2019-08-12 09:08 | Inpatient (IN) | payer MEDICARE, OTHER ==
[~2019-08-12] VITALS: Ht 162.6 cm; Wt 49.9 kg
[~2019-08-12 09:08] MED LIST changes: +BACLOFEN10 MG PO
--- NOTE | 2019-08-12 10:00 | NUR ---
Gave patient gown to change in, as exiting room patient mentioned to drywall stripper helper at bedside that she had "$200 in her bra and that she wanted it to be placed in her purse," drywall stripper helper told patient that she would put money in her purse. Educated patient to change into gown and that I would come back with warm blankets and to connect her to the monitor. Patient verbalized understanding.
--- NOTE | 2019-08-12 10:40 | Diagnostic Imaging Report ---
EXAMINATION: CHEST 2 VIEWS INDICATION: Cough COMPARISON: Chest radiograph 12/02/2018 FINDINGS: The patient is right rotated. LINES/TUBES:EKG leads overlie the chest. LUNGS:The lungs are moderately inflated. Markedly increased AP diameter of the chest No focal consolidation or pulmonary edema. PLEURA:No pleural effusion or pneumothorax. MEDIASTINUM:The cardiomediastinal silhouette appears normal in size and shape. Atherosclerotic calcifications of the thoracic aorta. BONES/SOFT TISSUES:Multiple age indeterminate lower thoracic and upper lumbar compression deformities with approximately 50% vertebral body height loss and associated kyphosis. ABDOMEN:No free air under the diaphragm. IMPRESSION: No focal pneumonia or pulmonary edema. Multiple age indeterminate lower thoracic and upper lumbar compression deformities with approximately 50% vertebral body height loss and associated kyphosis. Signed by: Rita Salmeron MD on 08/12/2019 10:37 AM
[2019-08-12 11:18] LABS: BASOPHILS % 0.2 % (0.0-1.0); EOSINOPHILS # (AUTO) 0.1 (0.0-0.4); EOSINOPHILS % 0.8 % (0.0-6.0); HEMATOCRIT 37.7 % (34.2-44.1); HEMOGLOBIN 12.4 g/dL (12.0-16.0); LYMPHOCYTES # (AUTO) 3.3 (1.0-3.2); LYMPHOCYTES % 20.1 % (18.0-39.1); MEAN CORPUSCULAR HEMOGLOBIN 29.5 pg (28-32); MEAN CORPUSCULAR HGB CONC 32.9 g/dL (31-35); MEAN CORPUSCULAR VOLUME 89.8 fL (81-99); MONOCYTES # (AUTO) 1.5 (0.2-0.8); MONOCYTES % 9.3 % (4.4-11.3); NEUTROPHILS % 67.6 % (38.7-80.0); PLATELET COUNT 271 x10e3/uL (140-360); RED CELL DISTRIBUTION WIDTH 13.2 % (11.7-14.4)
[2019-08-12 11:32] LABS: BILIRUBIN,URINE NEGATIVE (NEGATIVE); CLARITY,URINE CLEAR (CLEAR); COLOR,URINE YELLOW (YELLOW); KETONES,URINE NEGATIVE (NEGATIVE); LEUKOCYTE ESTERASE ,URINE NEGATIVE (NEGATIVE); NITRITE,URINE NEGATIVE (NEGATIVE); PROTEIN,URINE DIPSTICK TRACE (NEGATIVE); URINE UROBILINOGEN 0.2 mg/dL (0.2 - 1)
[2019-08-12 11:37] LABS: BACTERIA,URINE MODERATE /HPF; EPITHELIAL CELLS,URINE FEW /LPF
[2019-08-12 11:43] LABS: ALBUMIN 3.2 g/dL (3.5-5.0); ALBUMIN/GLOBULIN RATIO 1.1 (0.8-2.0); ANION GAP 16.6 mmol/L (8-16); CALCIUM 9.4 mg/dL (8.4-10.2); CREATININE, SERUM 1.28 mg/dL (0.57-1.11); POTASSIUM 4.6 mmol/L (3.5-5.1)
[2019-08-12 11:50] LABS: CREATINE KINASE MB 0.8 ng/mL (0-5.0)
[2019-08-12] MEDS ORDERED: ONDANSETRON HCL INJ 2MG/ML 2ML 2 MG/ML VIAL IV PRN (13:30)
[2019-08-12] MEDS ORDERED: CEFEPIME HCL 1 GM VIAL IV SCH (14:00)
[2019-08-12] MEDS ORDERED: CEFEPIME 1GM/NS 0.9% 50 ML 50 ML IV SCH ×2 (14:00→23:00)
[2019-08-12] MEDS: SODIUM CHLORIDE 0.9% 1000ML 1,000 ML IV SCH (14:13)
[2019-08-12] MEDS ORDERED: AMLODIPINE BESYL5 MG PO (14:15)
[2019-08-12] MEDS ORDERED: GLIPIZIDE ER5 MG PO (14:17)
[2019-08-12] MEDS ORDERED: LISINOPRIL10 MG PO (14:18)
--- NOTE | 2019-08-12 16:01 | NUR ---
attempted to call report was told that nurse would call back
[2019-08-12] MEDS ORDERED: HYDRALAZINE HCL 20 MG/ML VIAL IV PRN (16:45)
[2019-08-12 17:37] VITALS: BP 77/18
[2019-08-12 17:39] VITALS: BP 77/18
[2019-08-12 17:44] VITALS: BP 77/18
[2019-08-12] MEDS: CEFTRIAXONE SOD 1 GM/NS 50 ML 50 ML IV SCH (18:23)
[2019-08-12] MEDS: DOCUSATE SODIUM 100 MG CAP PO SCH (18:23)
[2019-08-12 18:36] VITALS: BP 77/18
[2019-08-12] MEDS ORDERED: TRAMADOL HCL 50 MG TAB PO PRN (19:30)
[2019-08-12 20:00] VITALS: BP 118/76
[2019-08-12 21:00] VITALS: BP 118/76
[2019-08-13] VITALS (7 sets, daily range): BP systolic 118–145; BP diastolic 69–81
[2019-08-13 03:21] LABS: BASOPHILS % 0.2 % (0.0-1.0); EOSINOPHILS # (AUTO) 0.3 (0.0-0.4); EOSINOPHILS % 1.9 % (0.0-6.0); HEMATOCRIT 35.5 % (34.2-44.1); HEMOGLOBIN 11.8 g/dL (12.0-16.0); LYMPHOCYTES # (AUTO) 3.9 (1.0-3.2); MEAN CORPUSCULAR HEMOGLOBIN 30.2 pg (28-32); MEAN CORPUSCULAR HGB CONC 33.2 g/dL (31-35); MEAN CORPUSCULAR VOLUME 90.8 fL (81-99); MONOCYTES # (AUTO) 1.7 (0.2-0.8); MONOCYTES % 9.9 % (4.4-11.3); NEUTROPHILS # (AUTO) 10.8 (2.1-6.9); NEUTROPHILS % 63.6 % (38.7-80.0); PLATELET COUNT 286 x10e3/uL (140-360); RED BLOOD COUNT 3.91 x10e6/uL (3.6-5.1); RED CELL DISTRIBUTION WIDTH 13.2 % (11.7-14.4)
[2019-08-13 03:35] LABS: ALBUMIN/GLOBULIN RATIO 1.1 (0.8-2.0); ANION GAP 16.4 mmol/L (8-16); CALCIUM 8.9 mg/dL (8.4-10.2); CREATININE, SERUM 1.13 mg/dL (0.57-1.11); MAGNESIUM 1.9 MG/DL (1.3-2.1); PHOSPHORUS 2.8 MG/DL (2.3-4.7); POTASSIUM 4.4 mmol/L (3.5-5.1)
[2019-08-13 03:56] LABS: THYROID STIMULATING HORMONE 1.416 uIU/mL (0.350-4.940)
[2019-08-13] MEDS: SODIUM CHLORIDE 0.9% 1000ML 1,000 ML IV SCH ×2 (06:06→22:16)
--- NOTE | 2019-08-13 07:08 | NUR ---
bedside shift report received from retail shift manager RN, pt sleeping, easily aroused, no complaints at this time. pt alert, oriented X3, clear speech, no signs of distress. IV intact, patent, fluids running. all safety measures in place. will continue to monitor.
[2019-08-13] MEDS ORDERED: FAMOTIDINE 20 MG TAB PO SCH (07:30)
[2019-08-13] MEDS: INSULIN LISPRO 100 UNIT/1 ML 3ML VIAL SQ SCH ×4 (08:00→21:00)
[2019-08-13] MEDS ORDERED: DEXTROSE 50% SYRINGE 50 ML IV PRN (08:00)
[2019-08-13] MEDS: DOCUSATE SODIUM 100 MG CAP PO SCH ×2 (08:49→17:00)
[2019-08-13] MEDS: PANTOPRAZOLE SOD 40 MG TABEC PO SCH (08:49)
[2019-08-13] MEDS: METOPROLOL TARTRATE 50 MG TAB PO SCH (08:49)
[2019-08-13] MEDS ORDERED: ONDANSETRON HCL 4 MG ORAL DISINTEGRATING TAB PO PRN (09:30)
--- NOTE | 2019-08-13 13:27 | NUR ---
SPOKE WITH PT ABOUT SNF ORDER, IT IS MEDICARE AND WILL NEED A 3 MIDNIGHT STAY TO QUALIFY, SIGNED CHOICE FOR MEDICAL RESORT [facility], GOT CLINICALS TOGETHER PRINTED PASRR AND RTF, FAXED PACKET TO FACILITY AND PUT AT NURSES STATION FOR COMPLETION OF TRANSFER ON FRIDAY
--- NOTE | 2019-08-13 14:15 | NUR ---
IMM letter delivered and explained to pt. She verbalized understanding. Signed copy placed in chart. Copy to pt's transition of care folder.
--- NOTE | 2019-08-13 15:19 | NUR ---
PT'S FINGERSTICK BLOOD GLUCOSE 44; PT CLAMMY AND APPEARS SLEEPY ON EXAM. WILL GIVE IV DEXTROSE.
--- NOTE | 2019-08-13 15:35 | NUR ---
PT'S REPEAT FINGERSTICK BLOOD SUGAR 162; PT MORE ALERT, SITTING UP IN BED. PT STATES SHE FEELS BETTER. WILL CONTINUE TO MONITOR.
--- NOTE | 2019-08-13 16:45 | NUR ---
Nutrition Intervention Note RD Recommendation(s) for Physician: -Recommend enteral nutrition as medically appropriate - Glucerna 1.5 @ goal rate of 40 mL/hr with a water flush of 100 mL q 4hrs or water flush per MD (provides 1440 kcal, 79 g protein, and 1329 mL water) The patient meets criteria for MODERATE protein-calorie malnutrition. Plan of Care: RD following, monitoring for tolerance and adequacy Nutrition reason for involvement: Nutrition Risk Trigger (MST 2) and consult RD Assessment (08/13/19) Pt was admitted with leukocytosis, UTI, and weakness. A barium swallow test was performed. ST declared pt was silently aspirating and has mild/moderate oral dysphagia and moderate pharyngeal dysphagia. Therefore, ST recommended alternative means of nutrition. Recommend enteral nutrition as medically appropriate and provided RN with recommendations. Pt reports eating <50% of meals prior to admission for 1 month. Pt mentioned she had lost wt but was unsure of the amount or her usual weight. No N/V noted. Will continue to monitor. Principal Problems/Diagnoses: leukocytosis, UTI, and weakness PMH: HTN, diabetes, and anemia GI: soft, non-tender abdomen Skin: intact Labs: (08/13/2019) BUN 33, Creat 1.13, Glu 157, HgbA1c 7.3 Meds: insulin, metroprolol, colace, NaCl, zofran, hydralazine Ht: 64 inches (per pt) Wt: 110 lbs BMI: 18.9 kg/m2 IBW: 120 lbs Malnutrition Evaluation (08/13/19) The patient meets criteria for MODERATE protein-calorie malnutrition. Energy intake: <75% of estimated energy requirements for 1 month Weight loss: Unable to assess Fat loss: mild/moderate tricep region Muscle loss: Moderate clavicle region, mild- temporal region Supporting Evidence: Fluid accumulation: unable to evaluate Functional Status: unable to evaluate Nutrition Prescription (Diet Order): NPO Estimated Nutritional Needs: 3275-6107 calories/day (25-30 kcal/kg CBW) 50-75g protein/day (1-1.5 g pro/kg CBW) Diet Adequacy: Not meeting calorie needs, Not meeting protein needs Tolerance: Pt is NPO Diet Education Needs Assessment: Diet education not indicated. Nutrition Care Level: moderate Nutrition Diagnosis: Moderate protein kcal malnutrition related to h/o inadequate oral intake as evidenced by pt meeting <75% of estimated energy needs for 1 month and muscle/fat depletion. Goal: Patient will meet 75-100% of estimated needs by follow up Progress: N/A Interventions: -TF Composition, Rate, Route, Collaboration with other providers Monitoring/Evaluation: -Total energy intake, Total protein intake, Formula/Solution, IVF, Weight change Signed: Marline Solitario RD, LD
--- NOTE | 2019-08-13 17:03 | Diagnostic Imaging Report ---
Modified barium swallow, 08/13/2019. History: Dysphagia. Fluoro time: 2.0 min. Dose: 10.7 mGy (KANIKA) Discussion: Fluoroscopy was performed by museum exhibit technician. A radiologist was not present for exam. Fluoroscopic observation and imaging of the oral cavity, oropharynx, and hypopharynx was performed in the lateral projection during swallowing of liquids and solids, administered by speech pathology. See speech pathologist report for findings. Signed by: Rock Parker on 08/13/2019 5:00 PM
[2019-08-13] MEDS: CEFTRIAXONE SOD 1 GM/NS 50 ML 50 ML IV SCH (18:27)
--- NOTE | 2019-08-13 21:45 | NUR ---
Multiple attempts to insert NGT x 2 nurses. Unsuccessful. Call placed to Dr. Hart, awaiting new orders.
[2019-08-14] VITALS (15 sets, daily range): BP systolic 127–177; BP diastolic 52–86
[2019-08-14 04:07] LABS: ANION GAP 16.2 mmol/L (8-16); CALCIUM 8.9 mg/dL (8.4-10.2); CREATININE, SERUM 0.94 mg/dL (0.57-1.11); MAGNESIUM 1.9 MG/DL (1.3-2.1); POTASSIUM 4.2 mmol/L (3.5-5.1)
[2019-08-14 06:15] LABS: BASOPHILS % 0.3 % (0.0-1.0); EOSINOPHILS # (AUTO) 0.3 (0.0-0.4); EOSINOPHILS % 2.1 % (0.0-6.0); HEMATOCRIT 37.7 % (34.2-44.1); LYMPHOCYTES # (AUTO) 3.1 (1.0-3.2); LYMPHOCYTES % 22.7 % (18.0-39.1); MEAN CORPUSCULAR HEMOGLOBIN 29.8 pg (28-32); MEAN CORPUSCULAR HGB CONC 31.8 g/dL (31-35); MEAN CORPUSCULAR VOLUME 93.5 fL (81-99); MONOCYTES # (AUTO) 1.5 (0.2-0.8); MONOCYTES % 10.9 % (4.4-11.3); NEUTROPHILS # (AUTO) 8.5 (2.1-6.9); PLATELET COUNT 250 x10e3/uL (140-360); RED BLOOD COUNT 4.03 x10e6/uL (3.6-5.1); RED CELL DISTRIBUTION WIDTH 13.2 % (11.7-14.4)
--- NOTE | 2019-08-14 07:00 | NUR ---
BEDSIDE SHIFT REPORT RECEIVED FROM THE QUALITATIVE FIELD COORDINATOR RN. PT IS SLEEPING AT THIS TIME. NG TUBE PLACEMENT PENDING PER QUALITATIVE FIELD COORDINATOR.
[2019-08-14] MEDS: PANTOPRAZOLE SOD 40 MG TABEC PO SCH (07:30)
[2019-08-14] MEDS: INSULIN LISPRO 100 UNIT/1 ML 3ML VIAL SQ SCH ×4 (07:30→20:40)
--- NOTE | 2019-08-14 08:20 | NUR ---
WALKING ROUNDS MADE. PT IS AAOX3. TOOK PT TO THE REST ROOM AND BACK TO BED BY TECH BUT PT FEELS WEAK. LIGHT FACIAL DROOP AND SLURRED SPEECH NOTED. PT IS AAOX3. NO ISSUES WITH UPPER AND LOWER EXTREMITIES MOVEMENTS. PAGED ALBAN AND NOTIFIED THE SAME. WILL SEE THE PT SHORTLY PER ALBAN CHEMICAL DEPENDENCY ATTENDANT.
[2019-08-14] MEDS: DOCUSATE SODIUM 100 MG CAP PO SCH ×2 (09:00→16:51)
[2019-08-14] MEDS: METOPROLOL TARTRATE 50 MG TAB PO SCH ×2 (09:00→16:51)
--- NOTE | 2019-08-14 09:00 | NUR ---
EXTRACT OPERATOR AT BEDSIDE. PER THE EXTRACT OPERATOR PT HAD HX OF STROKE 1 YEAR AGO. PAGEGiuseppe PHOENIX NP AND INFORMED THE SAME.
--- NOTE | 2019-08-14 09:50 | NUR ---
PT OFF UNIT FOR PROCEDURE IN SAFE CONDITION.
--- NOTE | 2019-08-14 10:23 | Diagnostic Imaging Report ---
CT BRAIN WO HISTORY: Altered mental status COMPARISON: MRI of the brain 12/03/2018, head CT 12/02/2018 Technique: Noncontrast axial scans were obtained from skull base to the vertex. Coronal and sagittal reconstructions obtained from the axial data. One or more of the following dose reduction techniques were used: Automated exposure control, adjustment of the mA and/or kV according to patient size, and/or utilization of iterative reconstruction technique. DISCUSSION: Scalp/Skull: Unremarkable. Brain sulci: Mildly prominent. Ventricles: Compensatory dilatation. Extra-axial spaces: No masses or fluid collections. Carotid and vertebral artery calcifications are present. Parenchyma: Severe bilateral deep white matter hypodensity is likely chronic microvascular ischemic change. 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 Otherwise, no masses, hemorrhage, or large vascular territory acute infarct. Dural sinuses: No abnormal densities. Sellar/Suprasellar region: Intact. Skull base: Intact. Incidental findings: Bilateral ocular lens replacement. Mild scattered paranasal sinus mucosal thickening IMPRESSION: 1. No acute intracranial abnormalities. 2. Severe supratentorial chronic microvascular ischemic change. Generalized cerebral volume loss. 3. 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 Signed by: Dr. Ti Boland M.D. on 08/14/2019 10:20 AM
--- NOTE | 2019-08-14 10:25 | Diagnostic Imaging Report ---
EXAMINATION: CT scan of the chest without contrast. TECHNIQUE: Helical CT images of the chest were performed from the lung apices to the level of the adrenal glands. No intravenous contrast was administered. Coronal and sagittal reformatted images were obtained. Dose modulation, iterative reconstruction, and/or weight based adjustment of the mA/kV was utilized to reduce the radiation dose to as low as reasonably achievable. COMPARISON: None. CLINICAL HISTORY:leukocytosis, pneumonia DISCUSSION: ABSENCE OF INTRAVENOUS CONTRAST DECREASES SENSITIVITY FOR DETECTION OF FOCAL LESIONS AND VASCULAR PATHOLOGY. LINES/TUBES: None. LUNGS AND AIRWAYS: Atelectasis in the posterior lungs. No pneumonia. Debris within the lower trachea at the dot. PLEURA: No pneumothorax or pleural effusions. HEART AND MEDIASTINUM: The thyroid gland is normal. Coronary artery and vascular calcifications. LYMPH NODES: There is no mediastinal, hilar or axillary lymphadenopathy. ABDOMEN: Limited contrast-enhanced views of the upper abdomen show no abnormality within the visualized liver, spleen, pancreas, or kidneys. The adrenal glands are normal. BONES AND SOFT TISSUES: Bony demineralization with thoracolumbar junction compression fractures. Increased thoracic kyphosis. IMPRESSION: No acute CT finding of the chest Signed by: Dr. Sy Mueller M.D. on 08/14/2019 10:22 AM
--- NOTE | 2019-08-14 10:45 | NUR ---
NG TUBE PLACED. PT TOLERATED WELL. NEW ORDER RECEIVED FOR X RAY TO CHECK THE PLACEMENT. START FEEDING GLUCERNA 1.5 PER ALBAN ALUMINUM CAN COLLECTOR. NO WALL SUCTION. PT DENIED FURTHER NEEDS.
[2019-08-14] MEDS: GUAIFENESIN 600 MG TAB PO SCH ×3 (12:00→23:27)
--- NOTE | 2019-08-14 12:07 | Diagnostic Imaging Report ---
Exam: Abdominal film Clinical History: Enteric tube placement Comparison: None. DISCUSSION: Enteric tube placed with the distal tip overlying the left upper quadrant. Contrast within the colon. No obstruction. IMPRESSION: Enteric tube with the distal tip overlying the left upper quadrant Signed by: Dr. Sy Mueller M.D. on 08/14/2019 12:05 PM
--- NOTE | 2019-08-14 12:07 | NUR ---
PAGED RADIOLOGY REGARDING NG TUBE PLACEMENT. WAITING FOR THE RADIOLOGIST PER RADIOLOGY.
[2019-08-14] MEDS: ALBUTEROL/IPRATROPIUM 3 ML NEB NEB SCH ×2 (13:05→19:00)
--- NOTE | 2019-08-14 13:45 | NUR ---
PAGED RADIOLOGY REGARDING NG TUBE PLACEMENT. OKAY TO USE NG TUBE PER RADIOLOGY AND ALBAN COMMUNICATION CONSULTANT.
[2019-08-14] MEDS: METRONIDAZOLE 500MG/NS 100ML 100 ML IV SCH ×2 (15:00→22:44)
[2019-08-14] MEDS: SODIUM CHLORIDE 0.9% 1000ML 1,000 ML IV SCH (15:25)
--- NOTE | 2019-08-14 16:30 | NUR ---
PT HR ELEVATED. PAGED ALBAN AND INFORMED THE SAME.
[2019-08-14] MEDS: CEFTRIAXONE SOD 1 GM/NS 50 ML 50 ML IV SCH (16:57)
--- NOTE | 2019-08-14 16:59 | Consultation ---
DATE OF CONSULTATION: 08/14/2019 Pulmonary Critical Care Consultation HISTORY OF PRESENT ILLNESS: The patient is an 88-year-old woman. She was hospitalized at [facility] in November of 2018 with dehydration and acute kidney injury. She also had osteoporosis with a vertebral compression fracture at that time. The patient has subsequently been doing better and was traveling with a friend in [facility] for the past month. She noticed malaise and fatigue. She felt ill. She went to the doctor several times in [facility] and received intramuscular antibiotics. After coming home, she presented to our emergency department with cough and some congestion. She had a negative influenza test. Her CT scan of the chest was normal. An evaluation by speech pathology showed oropharyngeal dysphagia and possible aspiration. An NG tube was placed. She is on IV antibiotics for potential aspiration pneumonia and urinary tract infection. PAST SURGICAL HISTORY: 1. Status post appendectomy. 2. Status post kypho-vertebroplasty. PAST MEDICAL HISTORY: 1. Hypertension. 2. Diabetes. 3. Anemia. SOCIAL HISTORY: The patient never smoked. The patient was recently in [facility] for the past month. She is not an alcohol user. FAMILY HISTORY: Family history is noncontributory. ALLERGIES: THERE ARE NO KNOWN DRUG ALLERGIES. REVIEW OF SYSTEMS: She denies headache. She has no fevers, although she may have been feverish over the past several weeks. She does not complain of any neck pain. She does note a cough and some congestion. She has no chest pain. She has no abdominal pain. She has no nausea or vomiting. She has no leg swelling. She has no skin rashes. PHYSICAL EXAMINATION: VITAL SIGNS: The patient is afebrile. The blood pressure is 177/84 and the pulse is 79. The respiratory rate is 16 and the saturation is 97%. HEENT: Shows no facial swelling or erythema. CARDIAC: Reveals regular rate and rhythm with normal S1, S2. There are no murmurs or rubs. LUNGS: Auscultation of lungs reveals clear breath sounds bilaterally. There is no wheezing. ABDOMEN: Soft, nontender. There is no rebound or guarding. EXTREMITIES: Show no leg edema or calf tenderness. There is no cyanosis or clubbing. SKIN: Shows no rashes. LABORATORY DATA: White blood cell count is 13.5 and hemoglobin is 12. The platelet count is 250. The BUN to creatinine ratio is 20 to 0.9. The carbon dioxide is 19, and blood sugar is 176. The urinalysis is significant for 6-10 white blood cells. Influenza swab is negative. IMAGING: A CT scan of the brain shows severe chronic microvascular changes in supratentorial region. There is an old right striatocapsular and pontine infarct. CT scan of the chest shows no acute findings. IMPRESSION: 1. Oropharyngeal dysphagia with recurrent aspiration. 2. Osteoporosis with prior compression fractures. 3. Old cerebrovascular accident. 4. 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 5. Hyperglycemia. 6. Hypertension. PLAN: 1. Continue speech therapy and enteral feedings. 2. Continue current antibiotics. 3. GI evaluation. 4. Control blood pressure. 5. Await final culture results. Too Davis MD [facility] /[id number]
--- NOTE | 2019-08-14 17:45 | NUR ---
WHILE HOURLY ROUNDING PT C/O WEAKNESS ON THE RIGHT UPPER AND LOWER EXTREMITIES. VITAL SIGNS CHECKED. BP 132/72 , HR 82 , 96%NOTED. PAGED ALBAN MACHINIST MATE AND NOTIFIED THE PT WEAKNESS. WILL PUT NEW ORDERS PER ALBAN.
--- NOTE | 2019-08-14 18:00 | NUR ---
RECHECKED PT. PT IS RESTING ON BED. PAGED RADIOLOGY REGARDING STAT MRI. EXPECTING MRI BY 7 PM PER RADIOLOGY.
--- NOTE | 2019-08-14 18:45 | NUR ---
PT OFF UNIT FOR MRI. PT IS AAOX3. DENIES NEEDS AT THIS TIME.
--- NOTE | 2019-08-14 19:00 | NUR ---
SHIFT REPORT GIVEN TO THE STROKE PROGRAM COORDINATOR RN. PT IS OFF UNIT FOR MRI.
--- NOTE | 2019-08-14 19:41 | NUR ---
Pt seen during shift change. Pt was assisted by technical service rep escorted via hospital bed to radiology department for a STAT MRI of brain. Pt displaying symptoms of weakness on right upper and right lower extremities as well as slurriness in speech. Will await on results.
--- NOTE | 2019-08-14 19:50 | NUR ---
Pt back in room from MRI of brain. Pt laying in bed appear comfortable. Pt still slurry in speech but alert and oriented x3. Right UE and right LE moderately weak. NG tube to right nare in place receiving glucerna 1.5 germain at 40ml/hr. Bed alarm active. Call vogel within reach.
--- NOTE | 2019-08-14 19:56 | NUR ---
Received call from Radiologist (Dr. Stiles) and was notified patient's MRI brain results was positive for acute infarct in left area of medulla of brain. Will notify Dr. Hart about results.
--- NOTE | 2019-08-14 20:04 | Diagnostic Imaging Report ---
Examination: MRI BRAIN WO CONTRAST History: Weakness Comparison studies: Head CT from earlier today. Brain MRI dated 12/02/2018 Technique: Sagittal T2; axial DWI, FLAIR, GRE or SWI, T1, Coronal FLAIR. Intravenous contrast: None Findings: Scalp: No abnormal signal. No masses. Bone marrow: Normal in signal intensity. Brain volume: Moderate volume loss. Ventricles: No hydrocephalus. Extra-axial spaces: No abnormalities. Parenchyma: Again demonstrated are patchy and confluent areas of T2/FLAIR hyperintensity in the periventricular and subcortical and pontine white matter, nonspecific. Chronic lacunar infarcts are again seen in the right caudate head and left marcin. No masses, hemorrhage. Suprasellar and sellar region: No abnormalities. Craniocervical junction: No abnormalities. The foramen magnum is patent. No Chiari malformations. Vessels: Normal flow-voids in the arteries and sinuses. IMPRESSION: New acute nonhemorrhagic left paramedian medulla infarct when compared to prior brain MRI dated 12/03/2018. Unchanged severe chronic microvascular ischemic change and moderate volume loss. Unchanged chronic lacunar infarcts. Dr. Sara Stiles discussed acute findings with Nurse Robert Gerber on 08/14/2019 at 1957 hours. Signed by: Dr. Sara Stiles M.D. on 08/14/2019 8:02 PM
--- NOTE | 2019-08-14 20:10 | NUR ---
Called and spoke with Dr. Hart on the phone and notified of MRI brain results (i.e. positive for acute infarct) and that pt is symptomatic (weakness on RUE and RLE and slurred in speech). MD aware and ordered to consult Dr. Simpson (neuro) for TIA and to give patient STAT doses of Lovenox 50mg SC then Q12hr and STAT dose of ASA 325mg now and daily.
--- NOTE | 2019-08-14 20:17 | NUR ---
Paged and left voice message for Dr. Simpson for new consult order from Dr. Hart. Awaiting on MD call back.
--- NOTE | 2019-08-14 20:30 | NUR ---
Received call from Dr. Simpson and informed of new consult order for TIA on patient and informed pt is symptomatic and will be receiving Lovenox 50mg and ASA 325mg (STAT doses).Dr. Simpson ordered STAT CTA of head and neck and ordered to transfer pt to ICU STAT.
[2019-08-14] MEDS: ASPIRIN 325 MG TAB PO SCH (20:37)
[2019-08-14] MEDS: ENOXAPARIN SOD INJ 60 MG/0.6 ML SYR SC SCH ×2 (20:37→20:42)
--- NOTE | 2019-08-14 20:40 | NUR ---
Called and gave report to ICU nurse (Pat) and relayed information about patient and reason for transfer to ICU as ordered by Dr. Simpson.
--- NOTE | 2019-08-14 21:00 | NUR ---
New IV inserted on left AC 20g. Flushes well.
--- NOTE | 2019-08-14 21:05 | NUR ---
pt to transport to radiology and then icu. tele monitor placed at time prior to transport. charge nurse and tech with pt during transport to radiology and then to icu. pt tolerated transport well.
--- NOTE | 2019-08-14 21:05 | NUR ---
Pt went down and escorted by [employer] for CTA of head and neck. Pt appear to be in stable condition.
--- NOTE | 2019-08-14 21:20 | NUR ---
Patient went straight to ICU (Rm 190) from radiology dept. Patient's belongings transferred from Rm 202. ICU nurse (Pat) received pt and aware of patient's current condition.
--- NOTE | 2019-08-14 21:30 | NUR ---
Received from [facility]. Placed on EKG, pulse ox & NBP for monitoring. Speech slurred but understandable. Awning [place] weaker on the right than left. Able to answer neuro questions. NGT to right nare with Glucerna 1.5 @ 40ml/HR with 100ml flushes Q4H
[2019-08-14] MEDS ORDERED: SODIUM CHLORIDE 0.9% 250ML 250 ML ONE (22:18)
[2019-08-15] VITALS (27 sets, daily range): BP systolic 118–164; BP diastolic 57–99
[2019-08-15] MEDS ORDERED: SODIUM CHLORIDE 0.9% 50ML 50 ML ONE (00:02)
[2019-08-15] MEDS ORDERED: IOPAMIDOL 370 MG/ML 200 ML INFUS..BTL INJ ONE (00:02)
--- NOTE | 2019-08-15 01:08 | Diagnostic Imaging Report ---
Examination: Cervical and Intracranial CT Angiogram with Contrast History: Acute infarct of medulla. Comparison studies: Brain MRI and head CT performed earlier today. Technique: Axial images were obtained from the thoracic inlet. Coronal and sagittal images reconstructed from the axial data. Intravenous contrast: 100 mL of Isovue 370. Degree of stenosis at the carotid bulbs, if present, will be calculated using NASCET criteria where the smallest diameter at the location of stenosis is compared to the diameter of the more distal non-diseased vessel lumen. Computer generated maximum intensity projection and 3D images of the cervical and intracranial anterior and posterior circulations were performed on a separate workstation. Dose modulation, iterative reconstruction, and/or weight based adjustment of the mA/kV was utilized to reduce the radiation dose to as low as reasonably achievable. Findings: CTA neck: Aortic arch and major vessels: Patent. Common carotid arteries: Patent despite atherosclerotic calcifications. Cervical carotid bifurcations: Right: Circumferential calcification. Left :Patent despite atherosclerotic calcifications. Internal carotid arteries: Right: There is mild stenosis (60%) of the proximal cervical segment for a length of 2.5cm. Left: Patent despite atherosclerotic calcification. Vertebral arteries: Patent on the right. Mild stenosis (less than 25%) of the left intradural/ V4 segment due to calcific plaque and for a length of 5mm. The left V1-V3 segments are patent. CTA head: Internal carotid arteries: Patent despite atherosclerotic calcification of the bilateral cavernous and supraclinoid regions. Anterior cerebral arteries: Patent A1 and A2. Middle cerebral arteries: Patent M1 and M2. Posterior cerebral arteries: Patent right P1 and bilateral P2 segments. Direct/ origin on the left. Vertebro-basilar system: Patent. As above on the left V4. Anatomical variants: Anterior communicating artery :Present Posterior communicating arteries: Not present on the right. Vertebral arteries: Codominant. IMPRESSION: 1. 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 2. Mild stenosis of the V4 segment of the left vertebral artery for a length of 0.5cm. 3. Nonstenotic calcifications of the bilateral common carotid arteries, bilateral carotid bifurcations, and left cervical and bilateral cavernous and supraclinoid internal carotid arteries. Signed by: Dr. Sara Stiles M.D. on 08/14/2019 10:33 PM
[2019-08-15] MEDS: ALBUTEROL/IPRATROPIUM 3 ML NEB NEB SCH ×4 (02:49→19:08)
[2019-08-15 05:25] LABS: BASOPHILS % 0.3 % (0.0-1.0); EOSINOPHILS # (AUTO) 0.3 (0.0-0.4); EOSINOPHILS % 1.8 % (0.0-6.0); HEMATOCRIT 36.9 % (34.2-44.1); HEMOGLOBIN 12.4 g/dL (12.0-16.0); LYMPHOCYTES # (AUTO) 2.7 (1.0-3.2); LYMPHOCYTES % 18.6 % (18.0-39.1); MEAN CORPUSCULAR HEMOGLOBIN 29.9 pg (28-32); MEAN CORPUSCULAR HGB CONC 33.6 g/dL (31-35); MEAN CORPUSCULAR VOLUME 88.9 fL (81-99); MONOCYTES # (AUTO) 1.5 (0.2-0.8); NEUTROPHILS % 68.4 % (38.7-80.0); PLATELET COUNT 313 x10e3/uL (140-360); RED BLOOD COUNT 4.15 x10e6/uL (3.6-5.1); RED CELL DISTRIBUTION WIDTH 13.2 % (11.7-14.4)
[2019-08-15 05:59] LABS: ANION GAP 15.3 mmol/L (8-16); CALCIUM 9.1 mg/dL (8.4-10.2); CREATININE, SERUM 0.99 mg/dL (0.57-1.11); POTASSIUM 4.3 mmol/L (3.5-5.1)
[2019-08-15] MEDS: METRONIDAZOLE 500MG/NS 100ML 100 ML IV SCH ×3 (05:59→21:59)
[2019-08-15] MEDS: GUAIFENESIN 600 MG TAB PO SCH ×4 (05:59→22:04)
[2019-08-15] MEDS: PANTOPRAZOLE SOD 40 MG TABEC PO SCH (07:30)
[2019-08-15] MEDS: DOCUSATE SODIUM 100 MG CAP PO SCH ×2 (08:30→17:02)
[2019-08-15] MEDS: ASPIRIN 325 MG TAB PO SCH (08:30)
[2019-08-15] MEDS: INSULIN LISPRO 100 UNIT/1 ML 3ML VIAL SQ SCH ×4 (08:32→21:01)
[2019-08-15] MEDS: ENOXAPARIN SOD INJ 60 MG/0.6 ML SYR SC SCH (08:32)
[2019-08-15] MEDS: METOPROLOL TARTRATE 50 MG TAB PO SCH (08:32)
--- NOTE | 2019-08-15 12:00 | NUR ---
ALBAN EVANS ROUNDING AT THIS TIME CALLED PRANEETH WHO IS THE NIECE AND GAVE HER PATIENT UPDATE AND POC, PATIENT TRANSPORTER DISCUSSED WITH THIS RN WHAT WAS DISCUSSED WITH PRANEETH AND ALL QUESTIONS WHERE ANSWERED THERE WAS A QUESTION ABOUT TRANSFERRING PATIENT TO MEDICAL CENTER TRANSFER PROCESS WAS DISCUSSED WITH NEETA. NO FURTHER QUESTIONS AT THIS TIME
[2019-08-15 12:09] LABS: CHOL/HDL RATIO 4.7 (3.0-3.6)
--- NOTE | 2019-08-15 13:48 | Progress Note ---
DATE: 08/15/2019 Pulmonary Critical Care Progress Note SUBJECTIVE: The patient was transferred to the ICU yesterday with an acute brainstem infarct and right-sided hemiparesis. She is having difficulty moving her upper or lower extremity. She has no headache. OBJECTIVE: VITAL SIGNS: The patient is afebrile. The blood pressure is 129/72. Saturation is 98%. The pulse is 68. HEENT: Shows no facial swelling or erythema. CARDIAC: Reveals regular rate and rhythm with normal S1, S2. LUNGS: Auscultation of lungs reveals clear breath sounds bilaterally. There is no wheezing. ABDOMEN: Soft and nontender. There is no rebound or guarding. EXTREMITIES: Show no leg edema or calf tenderness. There is no cyanosis or clubbing. SKIN: Shows no rashes. NEUROLOGICAL: Shows a right-sided hemiparesis involving the upper and lower extremity. LABORATORY DATA: White blood cell count is 14.6 and hemoglobin 12.4. The platelet count is 313. BUN to creatinine ratio is normal. ASSESSMENT: 1. Cerebrovascular accident. 2. Oropharyngeal dysphagia with recurrent aspiration. 3. Osteoporosis with prior compression fractures. 4. Hypertension. PLAN: 1. Continue anti-platelet therapy and Lovenox as per Neurology. 2. Continue aspiration precautions. 3. The patient is receiving enteral feedings. 4. Monitor blood pressure. 5. Await further input from Neurology. MD ALISON Daniels/KRUNAL /[id number]
--- NOTE | 2019-08-15 14:00 | NUR ---
IN ROOM SPOKE EXTENSIVELY TO PT CG STEPHEN, WHICH WAS OKAY'D TO SPEAK TO BY PRANEETH WHICH IS THE NIECE, EXPLAINED DIAGNOSIS AND PROGRESSION AND POC OF PATIENT. CG STATES PT WAS HAVING WEAKNESS WHEN SHE FIRST LANDED FROM [facility], CG STATES THAT IS WHY SHE BROUGHT HER HERE. MD CONFIRMED WITH CAREGIVER THAT THE PATIENT FIRST STARTED FEELING SICK [place]. CAREGIVER STATES SHE WAS WEAK AND THERE WAS SPEECH AND SWALLOW PROBLEMS PRIOR TO BRINGING HER TO THE HOSPITAL WHICH WAS WHAT BROUGHT HER HERE, CG EXPLAINED TO MD THAT THEY WANTED PATIENT TRANSFERRED TO MEDICAL CENTER, MD EXPLAINED TRANSFER PROCESS TO CG AND STATES THAT IT IS THERE RIGHT TO WANT TO TRANSFER HER BUT THERE WAS A PROCESS AND THAT WAS RE-EXPLAINED TO PATIENT AND CAREGIVER. ALL QUESTIONS ANSWERED AT THIS TIME.
[2019-08-15] MEDS ORDERED: CLOPIDOGREL BISULFATE 75 MG TAB PO ONE (14:30)
--- NOTE | 2019-08-15 14:45 | NUR ---
Per Nela RN, Pt's family (niece nicola and acquisition editor wei) requesting transfer. Per Edwina Rondon COMMERCIAL LENDER has explained that it will be a lateral transfer. Spoke to Edwina, she states she is waiting to see who will be the one point of contact so she can share the family member's info with Dr. Hart for discussion about transfer.
[2019-08-15] MEDS: CEFTRIAXONE SOD 1 GM/NS 50 ML 50 ML IV SCH (17:02)
--- NOTE | 2019-08-15 18:10 | NUR ---
CONSULT CALLED FOR DR. Anirudh SOTO AT THIS TIME SPOKE TO ESE
[2019-08-15] MEDS ORDERED: CHLORASEPTIC SPRAY 177 ML BTL MM PRN (18:30)
--- NOTE | 2019-08-15 18:45 | NUR ---
Report received. Assumed care. Assessment done. See interventions. Slurred speech but understandable. Right sided weakness. Right arm flaccid. Right leg able to wiggle toes, but not raise leg. NGT to right nare. Glucerna 1.5 @ 40ml/hr with 100ml flushes Q4H.
[2019-08-15] MEDS: ATORVASTATIN 20 MG TAB PO SCH (21:01)
[2019-08-16] VITALS (23 sets, daily range): BP systolic 117–151; BP diastolic 65–110
--- NOTE | 2019-08-16 00:39 | Progress Note ---
DATE: 08/15/2019 SUBJECTIVE: The patient with dysarthria, discussed at length with the nurse as well as the caregiver at beside. CTA of the head shows spinal stenosis in the right carotid artery. There is moderate to which she is asymptomatic at this time. She still had difficulty with swallowing and NG tube is in. REVIEW OF SYSTEMS: Unobtainable otherwise. PHYSICAL EXAMINATION: VITAL SIGNS: Temperature 98, respirations 16, pulse rate 80, blood pressure 121/68 on examination. HEAD AND NECK: No meningeal signs. LUNGS: Bilateral rales. NG tube in place. EXTREMITIES: Pulses present. NEUROLOGIC: The patient is alert with significant dysarthria, right hemiplegia and right facial weakness. Gag is depressed. ASSESSMENT: 1. Status post small vessel ischemic monitored. The stroke is at least 1-week-old at this point, started one with symptoms at least one week ago. 2. Dysarthria and dysphagia secondary to that. 3. Hypertension. 4. Hyperlipidemia. 5. Diabetes. Recommend target of LDL less than 70. We will check also echocardiogram. As far as the asymptomatic carotid stenosis that can be managed later. I will continue with dual anti-platelet therapy, high-dose statins. Speech evaluation and a swallowing study to be done and check echocardiogram to keep her on cardiac monitoring for any atrial fibrillation. Keep blood pressure in the upper normal range. Blood sugar in normal range. Continue current treatment and rehabilitation evaluation. Damien Simpson MD AM/KRUNAL /[id number]
--- NOTE | 2019-08-16 00:56 | NUR ---
Changed diaper and chaz care done.
[2019-08-16] MEDS: ALBUTEROL/IPRATROPIUM 3 ML NEB NEB SCH ×4 (01:00→18:52)
--- NOTE | 2019-08-16 04:20 | Consultation ---
DATE OF CONSULTATION: 08/14/2019 HISTORY: This is an 88-year-old female, who was on a business trip in [facility] when she presented to acute care facility there because of onset of right sided weakness and slurred speech. The patient was diagnosed there with a flu and she came back and she arrived in [place] on Friday. She was admitted to the hospital here on and she has been in the hospital since then. The nursing staff noticed more slurred speech and weakness on the right side, this morning when after she woke up and MRI of the brain done this evening shows diffusion restriction area on DWI images in the medulla. As such, a neurology consult was placed. The patient has history of old strokes and her MRI also shows multiple bilateral lacunar strokes. She has a history of hypertension, diabetes, and anemia as well as hyperlipidemia. She has a history of kidney disease and vertebral compression fracture previously and now she is being treated also for flu. Bilateral lacunar strokes from previous admissions. PAST SURGICAL HISTORY: As above appendectomy and vertebroplasty. PAST MEDICAL HISTORY: Hypertension, diabetes, anemia. SOCIAL HISTORY: No tobacco abuse. Travelled significantly frequently to [facility]. No alcohol or drug abuse. FAMILY HISTORY: Noncontributory. ALLERGIES: NO KNOWN DRUG ALLERGIES. REVIEW OF SYSTEMS: She has slurred speech as well as right hemiplegia. Otherwise, review of systems as above and negative unless mentioned above. PHYSICAL EXAMINATION: VITAL SIGNS: Temperature 98, respiratory rate 16, pulse rate 80, blood pressure 177/84. HEAD AND NECK: No meningeal signs. LUNGS: Bilateral rales. No wheezing. ABDOMEN: Soft. EXTREMITIES: Pulses present. NEUROLOGIC: The patient is alert, slurred speech, difficulty with moving the right side. She had total plegia on the right side. She also has weakness in the left side, but she is totally plegic on the right. Deep tendon reflexes are 3 on the right, 2 on left. Plantars are extensor on the left and extensor on the right. Gait could not be tested. The sensory could not be tested and was not reliable. She had also decreased gag as well as right facial weakness. Extraocular muscle movements were intact. Visual whyte were full to confrontation. The patient also has an NG tube because she has been aspirating with dysphagia. 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 The etiology of small vessel disease, which also explains the previous lacunes she had. We will check a CTA of the head the next step to evaluate for any other potential intervention. In the meantime, we will maintain her on aspirin, Plavix, as well as statins. We will keep her on ICU with neuro checks every 1 hour for now. PT, OT, and definitely speech therapy evaluation to be done MENDEZ and to evaluate the swallowing barrier for potential need for a PEG tube if she fails. Thiamine has been initiated as well. We will keep blood pressure in the upper normal range. Blood sugar in the normal range. Rehabilitation evaluation. Her EKG shows normal sinus rhythm and as such there is no need for full anticoagulation. We will, however, maintain VTE prophylaxis with Lovenox subcu 40. As mentioned, she will be maintained on dual anti-platelet therapy, Plavix, and aspirin. Hypertension as above, blood pressure parameters. Diabetes, blood sugar will be maintained in the normal range. History of multiple bilateral ischemic strokes and lacunes. Recommend as above. Rehabilitation PT, OT as the treatment as above. We will follow. We will keep her in the ICU for close evaluation and monitoring. Damien Simpson MD AM/KRUNAL /[id number]
[2019-08-16 05:23] LABS: BASOPHILS % 0.3 % (0.0-1.0); EOSINOPHILS # (AUTO) 0.2 (0.0-0.4); EOSINOPHILS % 1.9 % (0.0-6.0); HEMATOCRIT 34.8 % (34.2-44.1); HEMOGLOBIN 11.6 g/dL (12.0-16.0); LYMPHOCYTES # (AUTO) 1.9 (1.0-3.2); MEAN CORPUSCULAR HEMOGLOBIN 29.7 pg (28-32); MEAN CORPUSCULAR HGB CONC 33.3 g/dL (31-35); MONOCYTES # (AUTO) 1.4 (0.2-0.8); MONOCYTES % 12.1 % (4.4-11.3); NEUTROPHILS # (AUTO) 8.2 (2.1-6.9); NEUTROPHILS % 68.9 % (38.7-80.0); PLATELET COUNT 297 x10e3/uL (140-360); RED BLOOD COUNT 3.91 x10e6/uL (3.6-5.1); RED CELL DISTRIBUTION WIDTH 13.6 % (11.7-14.4)
[2019-08-16 05:42] LABS: ANION GAP 14.6 mmol/L (8-16); CALCIUM 8.9 mg/dL (8.4-10.2); CREATININE, SERUM 0.91 mg/dL (0.57-1.11); MAGNESIUM 1.9 MG/DL (1.3-2.1); POTASSIUM 4.6 mmol/L (3.5-5.1)
[2019-08-16] MEDS: METRONIDAZOLE 500MG/NS 100ML 100 ML IV SCH ×3 (05:53→21:34)
[2019-08-16] MEDS: GUAIFENESIN 600 MG TAB PO SCH ×4 (05:53→23:27)
[2019-08-16] MEDS: PANTOPRAZOLE SOD 40 MG TABEC PO SCH (07:30)
[2019-08-16] MEDS: ASPIRIN 325 MG TAB PO SCH (08:35)
[2019-08-16] MEDS: DOCUSATE SODIUM 100 MG CAP PO SCH ×2 (08:35→17:00)
[2019-08-16] MEDS: FENOFIBRATE 48 MG TAB PO SCH (08:36)
[2019-08-16] MEDS: ENOXAPARIN SOD INJ 60 MG/0.6 ML SYR SC SCH (08:36)
[2019-08-16] MEDS: METOPROLOL TARTRATE 50 MG TAB PO SCH (08:36)
[2019-08-16] MEDS: INSULIN LISPRO 100 UNIT/1 ML 3ML VIAL SQ SCH ×5 (08:37→21:35)
[2019-08-16] MEDS ORDERED: CLOPIDOGREL BISULFATE 75 MG TAB PO SCH (09:00)
--- NOTE | 2019-08-16 10:02 | NUR ---
Pt transferred from floor to ICU for higher level of care over the weekend. Will need new PT orders when pt appropriate to resume skilled PT. Thank you. Addendum: 08/16/19 at 1003 by TONI SUNSHINE PTA Amended: Links added.
[2019-08-16] MEDS: ACETAMINOPHEN 325 MG TAB PO PRN ×2 (10:28→11:19)
--- NOTE | 2019-08-16 11:42 | NUR ---
ACUTE CVA ON ROCHELLE FAILED SWALLOW EVAL REPEAT BARIUM SWALLOW MAY NEED PEG ASSISTED PLAN ACUTE REHAB
--- NOTE | 2019-08-16 13:43 | Progress Note ---
DATE: 08/16/2019 SUBJECTIVE: The patient is afebrile. The family is requesting transfer to [facility]. PHYSICAL EXAMINATION: VITAL SIGNS: The patient's vital signs are stable. CARDIAC: Reveals a regular rate and rhythm with normal S1 and S2. LUNGS: Auscultation of lungs reveals decreased breath sounds at the bases. There is no wheezing. ABDOMEN: Soft and nontender. There is no rebound or guarding. NEUROLOGIC: There is a dense hemiparesis on the right side. IMPRESSION: 1. Acute cerebrovascular accident. 2. Hypertension. 3. Oropharyngeal dysphagia with recurrent aspiration. PLAN: 1. Continue current anti-platelet therapy. 2. Continue aspiration precautions. 3. Continue enteral feedings. 4. Await possible transfer. Too Davis MD [facility]/ASHTYNL /[id number]
--- NOTE | 2019-08-16 14:02 | NUR ---
CM SPOKE WITH ALBAN EVANS FOR DR LITTLE STATES PT AND FAMILY ARE STILL REQUESTING TRANSFER TO [facility] ORDERS REC'D TO INITIATE TRANSFER CM MET WITH PT AND PT'S LUCILLE TRINIDAD [phone] PT DEFERS ALL DECISIONS TO HER PT REQUESTING TRANSFER SO THAT SHE CAN SEE HER NEUROLOGIST THERE AFTER HER STROKE, DR ELLEN CASTELLANO CHOICE LETTER SIGNED BY MARYURI FOR [facility]
--- NOTE | 2019-08-16 14:11 | NUR ---
ASSESSMENT: Spiritual concern Pt hopeful to "get well" and "return home." Pt/family requested field pipe lines supervisor visit. Pt states she lives home alone. Intervention: Provided unhurried empathic listening and facilitated illness review. Provided prayer. Provided information on how to contact field pipe lines supervisor, if needed. Outcome: Pt expressed appreciation for visit. Will follow as able. BECCA ROTHMAN Digital Marketing Strategist Spiritual Care Department O: [phone] Pager: [phone] ([phone] number calling from)
--- NOTE | 2019-08-16 14:43 | NUR ---
BABS SPOKE WITH SHAE AT [facility] [place] TRANSFER [facility] [phone] FAXED FACE SHEET TO [phone] MOT INITIATED AND PLACED ON FRONT OF CHART PT AND NEICE AWARE THAT PT MAY NOT BE ACCEPTED SINCE THIS IS A LATERAL TRANSFER AND PT REQUEST
--- NOTE | 2019-08-16 15:23 | Diagnostic Imaging Report ---
PROCEDURE: X-RAY MODIFIED BARIUM SWALLOW COMPARISON: None. INDICATION: Aspiration Radiation Details: Fluoroscopy time: 3.0 minutes Cumulative dose: 13.1 mGy DISCUSSION: Fluoroscopic examination was performed in conjunction with speech pathology during swallowing a variety of thin and thick liquid consistencies. Provided images demonstrate laryngeal penetration and silent aspiration. CONCLUSION: Modified barium swallow demonstrating laryngeal penetration and silent aspiration. Please refer to the speech pathology report for further details. Signed by: Rita Salmeron MD on 08/16/2019 3:21 PM
[2019-08-16] MEDS: CEFTRIAXONE SOD 1 GM/NS 50 ML 50 ML IV SCH (16:23)
[2019-08-16] MEDS: ATORVASTATIN 20 MG TAB PO SCH (21:34)
[2019-08-17] VITALS (7 sets, daily range): BP systolic 114–134; BP diastolic 64–83
[2019-08-17] MEDS: ALBUTEROL/IPRATROPIUM 3 ML NEB NEB SCH ×4 (00:26→19:30)
[2019-08-17 03:45] LABS: HEMATOCRIT 34.2 % (34.2-44.1); HEMOGLOBIN 11.6 g/dL (12.0-16.0); RED BLOOD COUNT 3.83 x10e6/uL (3.6-5.1)
[2019-08-17 03:46] LABS: BASOPHILS % 0.2 % (0.0-1.0); EOSINOPHILS % 2.6 % (0.0-6.0); LYMPHOCYTES % 24.9 % (18.0-39.1); MEAN CORPUSCULAR HEMOGLOBIN 30.3 pg (28-32); MEAN CORPUSCULAR HGB CONC 33.9 g/dL (31-35); MEAN CORPUSCULAR VOLUME 89.3 fL (81-99); MONOCYTES % 11.6 % (4.4-11.3); NEUTROPHILS % 59.9 % (38.7-80.0); PLATELET COUNT 277 x10e3/uL (140-360); RED CELL DISTRIBUTION WIDTH 13.6 % (11.7-14.4)
[2019-08-17 03:47] LABS: EOSINOPHILS # (AUTO) 0.3 (0.0-0.4); LYMPHOCYTES # (AUTO) 2.9 (1.0-3.2); MONOCYTES # (AUTO) 1.4 (0.2-0.8)
[2019-08-17 04:01] LABS: ANION GAP 16.6 mmol/L (8-16); CREATININE, SERUM 1.15 mg/dL (0.57-1.11); POTASSIUM 4.6 mmol/L (3.5-5.1)
[2019-08-17 04:02] LABS: CALCIUM 9.1 mg/dL (8.4-10.2)
[2019-08-17] MEDS: METRONIDAZOLE 500MG/NS 100ML 100 ML IV SCH ×3 (06:24→22:00)
[2019-08-17] MEDS: GUAIFENESIN 600 MG TAB PO SCH ×3 (06:24→17:02)
[2019-08-17] MEDS: PANTOPRAZOLE SOD 40 MG TABEC PO SCH (07:30)
[2019-08-17] MEDS: INSULIN LISPRO 100 UNIT/1 ML 3ML VIAL SQ SCH ×4 (07:50→21:00)
[2019-08-17] MEDS: DOCUSATE SODIUM 100 MG CAP PO SCH (08:27)
[2019-08-17] MEDS: FENOFIBRATE 48 MG TAB PO SCH (08:27)
[2019-08-17] MEDS: METOPROLOL TARTRATE 50 MG TAB PO SCH (08:27)
[2019-08-17] MEDS: ASPIRIN 325 MG TAB PO SCH (08:27)
[2019-08-17] MEDS: ENOXAPARIN SOD INJ 60 MG/0.6 ML SYR SC SCH (08:28)
[2019-08-17] MEDS ORDERED: MAALOX/LIDOCAINE/BENADRYL/NYST 30 ML BTL PO PRN (10:00)
--- NOTE | 2019-08-17 11:03 | NUR ---
Follow up visit. Provided empathic listening, pastoral presence and blessing. Pt requested a follow up visit "tomorrow." Will continue to follow as able. BECCA ROTHMAN Wildlife Refuge Specialist Spiritual Care Department O: [phone] Pager: [phone] ([phone] number calling from)
--- NOTE | 2019-08-17 12:18 | Progress Note ---
DATE: 08/16/2019 SUBJECTIVE: The patient is same with right hemiplegia. The family wants patient transferred for rehab or [facility]. Case management working on that. MEDICATIONS: Per SEP. PHYSICAL EXAMINATION: VITAL SIGNS: Temperature 98.7, respiratory rate 16, pulse rate 80, and blood pressure 121/60. HEAD AND NECK: No meningeal signs. LUNGS: Bilateral rales. ABDOMEN: Soft. EXTREMITIES: Pulses present. Edema noted distally. NEUROLOGIC: Right hemiplegia, right facial weakness, and dysphagia. Gag depressed. Deep tendon reflexes are 3 on the right and 2 on the left. ASSESSMENT: 1. Status post lacunar medullary stroke with dense hemiplegia on the right. 2. Old strokes lacunar in the past bilateral. 3. Hypertension. 4. Hyperlipidemia. 5. Dysphagia. 6. Hemiplegia. RECOMMEND: Extra Plavix, high dose statins, physical and occupational therapy, rehabilitation evaluation for transfer. Speech therapy will evaluate the patient. If she fails swallowing, she will need probably a PEG. DVT prophylaxis ongoing with Lovenox. Damien Simpson MD AM/KRUNAL /[id number]
[2019-08-17] MEDS: MINERAL OIL/PETROLAT/GLYCERI 2OZ CRM TOP SCH ×3 (13:40→21:00)
--- NOTE | 2019-08-17 14:30 | NUR ---
pt transferred to room 200 after report called. faustino notified of transfer. all personal items moved with pt including pink cell phone. on telemetry. tolerates transfer well.
--- NOTE | 2019-08-17 14:39 | Progress Note ---
DATE: 08/17/2019 SUBJECTIVE: The patient still has a dense right hemiparesis. She is awaiting PEG placement. She has no fevers. PHYSICAL EXAMINATION: VITAL SIGNS: The patient is afebrile. The vital signs are stable. HEENT: Shows no facial swelling or erythema. CARDIAC: Reveals a regular rate and rhythm with normal S1 and S2. LUNGS: Auscultation of lungs reveals clear breath sounds bilaterally. There is no wheezing. ABDOMEN: Soft and nontender. There is no rebound or guarding. EXTREMITIES: Shows no leg edema or calf tenderness. There is no cyanosis or clubbing. SKIN: Shows no rashes. IMPRESSION: 1. Cerebrovascular accident. 2. Oropharyngeal dysphagia and recurrent aspiration. 3. Hypertension. PLAN: 1. Continue current anti-platelet therapy. 2. Await PEG. 3. Enteral feedings. 4. Physical therapy. MD ALISON Daniels/KRUNAL /[id number]
--- NOTE | 2019-08-17 14:40 | NUR ---
PT RECEIVED FROM ICU. PT HAS WEAKNESS ON RIGHT UPPER AND LOWER EXTREMITIES. UNABLE TO MOVE RUE & RLE. PT IS AAOX3. BED IS LOW AND LOCKED. SIDE RAILS X2. CALL LIGHT WITH IN EASY REACH. PT DENIES NEEDS AT THIS TIME.
--- NOTE | 2019-08-17 14:55 | NUR ---
RECHECKED BOWEL SOUNDS WITH STETHOSCOPE TO START NG TUBE FEEDING. PT DENIES NEEDS AT THIS TIME.
--- NOTE | 2019-08-17 15:00 | NUR ---
NG TUBE FEED STARTED PER THE ORDER. PT TOLERATED WELL. DENIES NEEDS AT THIS TIME.
[2019-08-17] MEDS: CEFTRIAXONE SOD 1 GM/NS 50 ML 50 ML IV SCH (16:18)
[2019-08-17] MEDS: DOCUSATE SODIUM LIQD 100 MG/10 ML UDC NG SCH (16:18)
[2019-08-17] MEDS ORDERED: SODIUM CHLORIDE 0.9% 250ML 250 ML ONE (16:18)
--- NOTE | 2019-08-17 16:28 | NUR ---
REC'D ADMINISTRATIVE DENIAL FOR LATERAL TRANSFER TODAY FROM [facility] TODAY PT'S MANUEL DACOSAT NOTIFIED OF DENIAL
--- NOTE | 2019-08-17 19:00 | NUR ---
BEDSIDE SHIFT REPORT GIVEN TO THE PRINCIPAL TECHNICAL SPECIALIST RN. PT DENIED FURTHER NEEDS.
--- NOTE | 2019-08-17 19:39 | NUR ---
RECEIVED PT IN BED AOX3 PT HAS NG TUBE WITH GLUCERINA 1.5 @40ML/HR .DENIES PAIN .PT IS WEAK LEFT FA 22G S/L RESPIRATIONS ARE EVEN AND UNLABORED .BED IN THE LOWEST POSITION .CALL ,LIGHT WITH IN REACH .CONTINUE TO MONITOR
[2019-08-17] MEDS: ATORVASTATIN 20 MG TAB PO SCH (21:00)
[2019-08-18] VITALS (7 sets, daily range): BP systolic 116–139; BP diastolic 64–84
[2019-08-18] MEDS: ALBUTEROL/IPRATROPIUM 3 ML NEB NEB SCH ×4 (01:28→18:55)
--- NOTE | 2019-08-18 02:31 | Progress Note ---
DATE: 08/17/2019 SUBJECTIVE: The patient is the same with right hemiplegia. PEG is planned. She was denied to be transferred to [facility]. OBJECTIVE: VITAL SIGNS: Temperature 98, respiratory rate 16, pulse rate 80, blood pressure 121/67. HEAD AND NECK: No meningeal signs. LUNGS: Good air entry. ABDOMEN: Soft. EXTREMITIES: Pulses present. NEUROLOGIC: The patient is alert, dysarthria, right facial weakness, right hemiplegia. ASSESSMENT: 1. Status post . 2. Right hemiplegia. 3. Dysphagia and aspiration secondary to that. 4. Hypertension. PLAN: Recommend, continue dual-antiplatelet therapy and statins, PEG planned this week, transfer to rehab after that. Physical, occupational and speech therapy planned. Damien Simpson MD AM/KURNAL /[id number]
[2019-08-18] MEDS: METRONIDAZOLE 500MG/NS 100ML 100 ML IV SCH ×5 (03:03→21:43)
[2019-08-18 05:05] LABS: BASOPHILS % 0.2 % (0.0-1.0); EOSINOPHILS # (AUTO) 0.4 (0.0-0.4); EOSINOPHILS % 3.1 % (0.0-6.0); HEMATOCRIT 35.3 % (34.2-44.1); HEMOGLOBIN 11.5 g/dL (12.0-16.0); LYMPHOCYTES # (AUTO) 3.6 (1.0-3.2); LYMPHOCYTES % 29.1 % (18.0-39.1); MEAN CORPUSCULAR HEMOGLOBIN 29.8 pg (28-32); MEAN CORPUSCULAR HGB CONC 32.6 g/dL (31-35); MEAN CORPUSCULAR VOLUME 91.5 fL (81-99); MONOCYTES # (AUTO) 1.2 (0.2-0.8); NEUTROPHILS % 56.9 % (38.7-80.0); PLATELET COUNT 291 x10e3/uL (140-360); RED BLOOD COUNT 3.86 x10e6/uL (3.6-5.1); RED CELL DISTRIBUTION WIDTH 13.9 % (11.7-14.4)
[2019-08-18 05:31] LABS: ANION GAP 15.6 mmol/L (8-16); CALCIUM 9.3 mg/dL (8.4-10.2); CREATININE, SERUM 1.23 mg/dL (0.57-1.11); POTASSIUM 4.6 mmol/L (3.5-5.1)
[2019-08-18] MEDS: GUAIFENESIN 600 MG TAB PO SCH ×4 (05:58→17:06)
--- NOTE | 2019-08-18 06:09 | NUR ---
PT RESTED DURING THE NIGHT ,NPT TOLERATING THE FEEDING AND MEDICATION DR SOTO HAS SEEN THE PT DURING THE NIGHT .CALL LIGHT WITH IN REACH .CONTINUE TO MONITOR
--- NOTE | 2019-08-18 07:00 | NUR ---
BEDSIDE SHIFT REPORT RECEIVED FROM THE INTERNAL CONTROL MANAGER RN. CALL LIGHT WITH IN EASY REACH. INSTRUCTED PT TO USE CALL LIGHT FOR ALL THE NEEDS. PT VERBALIZED UNDERSTANDING. BED IS LOW AND LOCKED. SIDE RAILS X2. BED ALARM IS ON. PT DENIES NEEDS AT THIS TIME.
--- NOTE | 2019-08-18 07:15 | NUR ---
BEDSIDE REPORT GIVEN TO THE ONCOMING NURSE
[2019-08-18] MEDS: INSULIN LISPRO 100 UNIT/1 ML 3ML VIAL SQ SCH ×4 (08:30→20:43)
[2019-08-18] MEDS: ASPIRIN 325 MG TAB PO SCH (09:12)
[2019-08-18] MEDS: DOCUSATE SODIUM LIQD 100 MG/10 ML UDC NG SCH ×2 (09:12→16:36)
[2019-08-18] MEDS: FENOFIBRATE 48 MG TAB PO SCH (09:12)
[2019-08-18] MEDS: METOPROLOL TARTRATE 50 MG TAB PO SCH (09:12)
[2019-08-18] MEDS: PANTOPRAZOLE 40 MG 10ML VIAL IV SCH (09:12)
--- NOTE | 2019-08-18 09:15 | NUR ---
ST Note: Attempted to see pt for dysphagia treatment. Pt being changed. Will return later.
[2019-08-18] MEDS: MINERAL OIL/PETROLAT/GLYCERI 2OZ CRM TOP SCH ×4 (09:22→20:43)
[2019-08-18] MEDS: ENOXAPARIN SOD INJ 40 MG/0.4 ML SYR SC SCH (09:23)
--- NOTE | 2019-08-18 12:42 | NUR ---
Nutrition Intervention Note RD Recommendation(s) for Physician: -Continue TF of Glucerna 1.5 with goal rate of 40 mL/hr with a water flush of 100 mL q 4hrs or water flush per MD (provides 1440 kcal, 79 g protein, and 1329 mL water) The patient meets criteria for MODERATE protein-calorie malnutrition. Plan of Care: RD following, monitoring for tolerance and adequacy Nutrition reason for involvement: follow up RD Assessment 08/18: Pt seen for follow up, non-verbal at time of visit and no family present. Pt on TF via NGT at goal rate of 40 ml/hr- tolerating per RN. Pt discussed during am rounds, PEG placement remains pending. Chart reviewed. Will continue to monitor. (08/13/19) Pt was admitted with leukocytosis, UTI, and weakness. A barium swallow test was performed. ST declared pt was silently aspirating and has mild/moderate oral dysphagia and moderate pharyngeal dysphagia. Therefore, ST recommended alternative means of nutrition. Recommend enteral nutrition as medically appropriate and provided RN with recommendations. Pt reports eating <50% of meals prior to admission for 1 month. Pt mentioned she had lost wt but was unsure of the amount or her usual weight. No N/V noted. Will continue to monitor. Principal Problems/Diagnoses: leukocytosis, UTI, and weakness PMH: HTN, diabetes, and anemia GI: LBM 08/18 Skin: intact Labs: 08/18: Na 134, k 4.6, BUN 43, Cr 1.23, Gluc 218, POC Gluc 114-258 Meds: humalog, colace, protonix, tricor, lipitor, abx, zofran, ultram Ht: 64 inches (per pt) Wt: 110 lbs BMI: 18.9 kg/m2 IBW: 120 lbs Malnutrition Evaluation (08/13/19) The patient meets criteria for MODERATE protein-calorie malnutrition. Energy intake: <75% of estimated energy requirements for 1 month Weight loss: Unable to assess Fat loss: mild/moderate tricep region Muscle loss: Moderate clavicle region, mild- temporal region Supporting Evidence: Fluid accumulation: unable to evaluate Functional Status: unable to evaluate Nutrition Prescription (Diet Order): NPO Estimated Nutritional Needs: 8940-4708 calories/day (25-30 kcal/kg CBW) 50-75g protein/day (1-1.5 g pro/kg CBW) Diet Adequacy: Not meeting calorie needs, Not meeting protein needs Tolerance: Pt is NPO Diet Education Needs Assessment: Diet education not indicated. Nutrition Care Level: moderate Nutrition Diagnosis: Moderate protein kcal malnutrition related to h/o inadequate oral intake as evidenced by pt meeting <75% of estimated energy needs for 1 month and muscle/fat depletion. Goal: Patient will meet 75-100% of estimated needs by follow up Progress: goal met- TF Interventions: -TF Composition, Rate, Route, Collaboration with other providers Monitoring/Evaluation: -Total energy intake, Total protein intake, Formula/Solution, Weight change Signed: Linda Maurer RD, LD, CNSC
--- NOTE | 2019-08-18 14:25 | NUR ---
PAGED ALBAN CLINICAL SCIENCE LIAISON AND INFORMED PT ELEVATED HR. TELEMETRY REPORTED PVC'S AND SINUS TACHY. INFORMED THE SAME TO ALBAN.
[2019-08-18] MEDS: CEFTRIAXONE SOD 1 GM/NS 50 ML 50 ML IV SCH (16:02)
--- NOTE | 2019-08-18 18:55 | NUR ---
Bedside rounds completed with morning nurse. Pt alert and oriented to name, lying in bed HOB 60 degrees. NGT rt naris, patent with glucerna 1.5 @40ml/hr. Denies pain at this time. Call light within reach. Will continue to monitor.
--- NOTE | 2019-08-18 19:00 | NUR ---
BEDSIDE SHIFT REPORT GIVEN TO THE HOTEL DESK CLERK RN. PT DENIED FURTHER NEEDS.
[2019-08-18] MEDS: ATORVASTATIN 20 MG TAB PO SCH (20:42)
--- NOTE | 2019-08-18 23:52 | Progress Note ---
DATE: 08/18/2019 SUBJECTIVE: The patient with right hemiplegia. PEG tube planned for tomorrow. No new changes. Discussed with nursing staff. MEDICATIONS: Per SEP. OBJECTIVE: VITAL SIGNS: Temperature 97.9, respiratory rate 15, pulse rate 82, and blood pressure 137/88. HEAD AND NECK: No meningeal signs. LUNGS: Good air entry with no wheezing. ABDOMEN: Soft. EXTREMITIES: Pulses present. NEUROLOGIC: Alert, dysarthria, right facial weakness. Right hemiplegia. Deep tendon reflexes are 3 on the right, 2 on the left. Gag is depressed. ASSESSMENT: 1. Status post medullary stroke with dense hemiplegia. 2. Right hemiplegia. 3. Dysphagia and aspiration. 4. Hypertension. RECOMMEND: Continue dual antiplatelet therapy and statins. Target LDL less than 70. PEG tube planned. Rehabilitation, physical, occupational, and speech therapy. Damien Simpson MD AM/KRUNAL /[id number]
[2019-08-19] VITALS (7 sets, daily range): BP systolic 108–148; BP diastolic 71–85
--- NOTE | 2019-08-19 00:10 | NUR ---
Bedside round completed with Dr. Sarah Mora. Informed wants Pt to have PEG placement Friday. Dr. Sarah Mora called tali Davenport as she requested, did not answer. Dr. Sarah Mora will follow up with family later.
[2019-08-19] MEDS: ALBUTEROL/IPRATROPIUM 3 ML NEB NEB SCH ×4 (01:00→19:00)
[2019-08-19 03:19] LABS: BASOPHILS # (AUTO) 0.1 (0.0-0.1); BASOPHILS % 0.4 % (0.0-1.0); EOSINOPHILS # (AUTO) 0.3 (0.0-0.4); EOSINOPHILS % 2.4 % (0.0-6.0); HEMATOCRIT 34.3 % (34.2-44.1); LYMPHOCYTES # (AUTO) 3.9 (1.0-3.2); LYMPHOCYTES % 29.2 % (18.0-39.1); MEAN CORPUSCULAR HEMOGLOBIN 29.5 pg (28-32); MEAN CORPUSCULAR HGB CONC 32.1 g/dL (31-35); MONOCYTES # (AUTO) 1.2 (0.2-0.8); MONOCYTES % 8.6 % (4.4-11.3); NEUTROPHILS # (AUTO) 7.8 (2.1-6.9); NEUTROPHILS % 58.7 % (38.7-80.0); PLATELET COUNT 284 x10e3/uL (140-360); RED BLOOD COUNT 3.73 x10e6/uL (3.6-5.1)
[2019-08-19 03:38] LABS: ANION GAP 14.7 mmol/L (8-16); CALCIUM 8.7 mg/dL (8.4-10.2); CREATININE, SERUM 1.32 mg/dL (0.57-1.11); MAGNESIUM 2.1 MG/DL (1.3-2.1); POTASSIUM 4.7 mmol/L (3.5-5.1)
[2019-08-19] MEDS: GUAIFENESIN 600 MG TAB PO SCH ×4 (06:00→18:00)
[2019-08-19] MEDS: METRONIDAZOLE 500MG/NS 100ML 100 ML IV SCH ×3 (06:00→22:00)
[2019-08-19] MEDS ORDERED: CHLORASEPTIC SPRAY 177 ML BTL MM PRN (07:00)
[2019-08-19] MEDS: INSULIN LISPRO 100 UNIT/1 ML 3ML VIAL SQ SCH ×4 (07:30→21:00)
--- NOTE | 2019-08-19 08:49 | NUR ---
Received order for inpatient rehab eval. CM to pt's bedside. Pt's friend Melanie is present at bedside. CM spoke to pt and discussed plan for rehab. Pt states she is agreeable to rehab after dc from hospital. Pt does not know of any facilities. CM listed facilities to pt in the area. Pt deferred to her friend Melanie. Melanie states she is in contact with pt's family members. Would like a list of the facilities in the area and they will look some up and make a decision. List of facilities with addresses and phone number given to Melanie. CM business card given. Family will call CM with choice.
[2019-08-19] MEDS: DOCUSATE SODIUM LIQD 100 MG/10 ML UDC NG SCH ×2 (09:00→17:00)
[2019-08-19] MEDS: ENOXAPARIN SOD INJ 40 MG/0.4 ML SYR SC SCH (09:00)
[2019-08-19] MEDS: METOPROLOL TARTRATE 50 MG TAB PO SCH (09:00)
[2019-08-19] MEDS: PANTOPRAZOLE 40 MG 10ML VIAL IV SCH (09:00)
[2019-08-19] MEDS: ASPIRIN 325 MG TAB PO SCH (09:00)
[2019-08-19] MEDS: MINERAL OIL/PETROLAT/GLYCERI 2OZ CRM TOP SCH ×4 (09:00→21:00)
[2019-08-19] MEDS: FENOFIBRATE 48 MG TAB PO SCH (09:00)
--- NOTE | 2019-08-19 09:16 | NUR ---
Received call from pt's niece Amber Radford [phone]. She states that she and her sister Ethel Richmond are both listed as pt's medical POA. She would like for us to try to send referral to [facility]. She will look at other options in case pt gets denied. CM to pt's bedside. Informed pt that CM received call from Amber. Pt is agreeable to have clinicals sent to [facility]. She asked friend Melanie to sign choice form for her. Signed choice letter placed in chart. Copy given to Melanie. CM called and spoke with Shanda at [facility]. Informed her of referral and got fax number. Referral was faxed to [phone] /
--- NOTE | 2019-08-19 09:37 | NUR ---
pt family member stated pt NGT came out while they were repositioning her. pt stable , no c/o pain, call out to Sarah Mora. will cont to monitor.
[2019-08-19 15:05] LABS: BASOPHILS % 0.3 % (0.0-1.0); EOSINOPHILS # (AUTO) 0.2 (0.0-0.4); EOSINOPHILS % 1.3 % (0.0-6.0); HEMATOCRIT 35.8 % (34.2-44.1); HEMOGLOBIN 11.7 g/dL (12.0-16.0); LYMPHOCYTES # (AUTO) 4.8 (1.0-3.2); LYMPHOCYTES % 35.4 % (18.0-39.1); MEAN CORPUSCULAR HEMOGLOBIN 29.7 pg (28-32); MEAN CORPUSCULAR HGB CONC 32.7 g/dL (31-35); MEAN CORPUSCULAR VOLUME 90.9 fL (81-99); MONOCYTES # (AUTO) 1.4 (0.2-0.8); NEUTROPHILS # (AUTO) 7.1 (2.1-6.9); NEUTROPHILS % 52.3 % (38.7-80.0); PLATELET COUNT 301 x10e3/uL (140-360); RED BLOOD COUNT 3.94 x10e6/uL (3.6-5.1); RED CELL DISTRIBUTION WIDTH 14.1 % (11.7-14.4)
[2019-08-19] MEDS: CEFTRIAXONE SOD 1 GM/NS 50 ML 50 ML IV SCH (16:38)
[2019-08-19] MEDS ORDERED: DEXTROSE 5%/0.45% SOD CHL 1,000 ML IV ONE (17:00)
--- NOTE | 2019-08-19 17:00 | NUR ---
call to sarai , with [facility], orders given.
--- NOTE | 2019-08-19 18:50 | NUR ---
Bedside rounds completed with morning nurse. Pt alert and oriented to name, lying in bed HOB 45 degrees. Denies pain at this time. Call light within reach. Will continue to monitor.
--- NOTE | 2019-08-19 19:28 | NUR ---
report given to oncoming nurse, rounding complete. pt stable at shift change.
[2019-08-19] MEDS: ATORVASTATIN 20 MG TAB PO SCH (21:00)
[2019-08-20] VITALS (8 sets, daily range): BP systolic 111–151; BP diastolic 62–91
[2019-08-20] MEDS: ALBUTEROL/IPRATROPIUM 3 ML NEB NEB SCH ×5 (01:24→18:40)
[2019-08-20 03:42] LABS: BASOPHILS % 0.3 % (0.0-1.0); EOSINOPHILS # (AUTO) 0.2 (0.0-0.4); EOSINOPHILS % 1.8 % (0.0-6.0); HEMATOCRIT 32.9 % (34.2-44.1); HEMOGLOBIN 10.7 g/dL (12.0-16.0); LYMPHOCYTES # (AUTO) 3.6 (1.0-3.2); MEAN CORPUSCULAR HEMOGLOBIN 29.6 pg (28-32); MEAN CORPUSCULAR HGB CONC 32.5 g/dL (31-35); MEAN CORPUSCULAR VOLUME 91.1 fL (81-99); MONOCYTES # (AUTO) 1.1 (0.2-0.8); MONOCYTES % 9.2 % (4.4-11.3); PLATELET COUNT 298 x10e3/uL (140-360); RED BLOOD COUNT 3.61 x10e6/uL (3.6-5.1)
[2019-08-20 03:54] LABS: ANION GAP 14.2 mmol/L (8-16); CALCIUM 8.7 mg/dL (8.4-10.2); CREATININE, SERUM 1.21 mg/dL (0.57-1.11); POTASSIUM 4.2 mmol/L (3.5-5.1)
[2019-08-20] MEDS: GUAIFENESIN 600 MG TAB PO SCH ×4 (05:59→17:10)
[2019-08-20] MEDS: METRONIDAZOLE 500MG/NS 100ML 100 ML IV SCH (05:59)
--- NOTE | 2019-08-20 07:00 | NUR ---
BEDSIDE SHIFT REPORT RECEIVED FROM THE VIDEOTAPE OPERATOR RN. EDUCATED PT ABOUT FALL PRECAUTIONS. CALL LIGHT WITH IN EASY REACH. INSTRUCTED PT TO USE CALL LIGHT FOR ALL THE NEEDS. PT VERBALIZED UNDERSTANDING. BED IS LOW AND LOCKED. SIDE RAILS X2. BED ALARM IS ON. PT IS ON NPO. PT DENIES NEEDS AT THIS TIME.
--- NOTE | 2019-08-20 07:22 | NUR ---
Bedside report given to morning nurse. Pt reminded of NPO status, verbalized understanding. Also reminded of PEG tube placement scheduled for today, consent signed. No acute distress noted.
[2019-08-20] MEDS: INSULIN LISPRO 100 UNIT/1 ML 3ML VIAL SQ SCH ×4 (08:30→20:20)
[2019-08-20] MEDS: ASPIRIN 325 MG TAB PO SCH (09:00)
[2019-08-20] MEDS: METOPROLOL TARTRATE 50 MG TAB PO SCH (09:00)
[2019-08-20] MEDS: FENOFIBRATE 48 MG TAB PO SCH (09:00)
[2019-08-20] MEDS: DOCUSATE SODIUM LIQD 100 MG/10 ML UDC NG SCH ×2 (09:00→16:33)
[2019-08-20] MEDS: MINERAL OIL/PETROLAT/GLYCERI 2OZ CRM TOP SCH ×4 (09:17→20:20)
[2019-08-20] MEDS: PANTOPRAZOLE 40 MG 10ML VIAL IV SCH (09:22)
[2019-08-20] MEDS: METOPROLOL TARTRATE INJ 1 MG/ML VIAL IV PRN ×2 (10:15→17:45)
--- NOTE | 2019-08-20 10:57 | NUR ---
ST Note: Pt NPO for PEG/EGD. Will defer dysphagia treatment for today.
--- NOTE | 2019-08-20 11:05 | NUR ---
Arleth with [facility] is here to evaluate pt. States will have decision today.
--- NOTE | 2019-08-20 13:00 | NUR ---
INPATIENT REHAB DISCHARGE INFORMATION PATIENT HAS BEEN ACCEPTED TO: [address] [place] [address] ACCEPTING PATIENT PORTAL CONCIERGE: Brooklyn Martinez ACCEPTING MD: Dr. Lan Potter ROOM: will be assigned on report NURSE CALL REPORT TO: [phone] THE FOLLOWING DOCUMENTS MUST ACCOMPANY PATIENT FOR TRANSFER: copy of chart. transfer MAR COPIED CHART: community recreation programmer MOT INFO RECEIVED FROM: Arleth with [facility] ORDER/RECONCILED MED LIST: to be obtained by bedside RN [id number] DNR: n/a Fax DC med list to [phone] Transfer after 3pm MOT was completed and placed with pt's packet at nurses station. NATHAN Bland was notified of MOT. ROD Henson notified of MOT and BABS asked him to fax DC med list to number listed above. BABS also informed pt and family at bedside of acceptance. Gave address to facility to pt's family member.
--- NOTE | 2019-08-20 13:05 | NUR ---
Visit made by CORINNE Rodriguez. Street Engineer provided pastoral presence, hospitality, prayer, and supportive listening. Street Engineer informed pt/family of the scope of Pain Management Nurse Services and availability. BECCA ROTHMAN Street Engineer Spiritual Care Department O: [phone] Pager: [phone] ([phone] number calling from)
--- NOTE | 2019-08-20 17:40 | NUR ---
TELEMETRY CALLED AND REPORTED PT HAS NEW ONSET AFIB. PER THE PT, SHE HAS NO HX OF AFB. PAGED ALBAN EVANS AND INFORMED THE SAME. NEW ORDERS FOR STAT EKG AND CARDIAC CONSULT.
--- NOTE | 2019-08-20 17:50 | NUR ---
CALLED DR. CARRILLO REGARDING NEW CONSULT. PAGED RESPIRATORY REGARDING STAT EKG.
--- NOTE | 2019-08-20 18:20 | NUR ---
CALL RECEIVED FROM DR. CARRILLO. NEW ORDERS RECEIVED. READ BACK AND VERIFIED. IS OKAY WITH THE PEG TUBE PLACEMENT. INFORMED THE SAME TO DR. Anirudh SOTO.
[2019-08-20] MEDS ORDERED: METOPROLOL TARTRATE INJ 1 MG/ML VIAL IV PRN (18:30)
[2019-08-20] MEDS ORDERED: DIGOXIN INJ 0.25 MG/ML 2 ML AMP IV NR (18:45)
--- NOTE | 2019-08-20 19:00 | NUR ---
BEDSIDE SHIFT REPORT GIVEN TO THE SUPERVISOR FISH PROCESSING RN. PT DENIED FURTHER NEEDS.
[2019-08-20] MEDS: ATORVASTATIN 20 MG TAB PO SCH (20:20)
[2019-08-20] MEDS: METOPROLOL TARTRATE INJ 1 MG/ML VIAL IV SCH (21:56)
[2019-08-21] VITALS (9 sets, daily range): BP systolic 116–154; BP diastolic 63–79
--- NOTE | 2019-08-21 01:17 | Progress Note ---
DATE: 08/20/2019 SUBJECTIVE: The patient is same, no more changes. MEDICATIONS: Per SEP. OBJECTIVE: VITAL SIGNS: Afebrile. Vital signs stable. NEUROLOGIC: The patient with slurred speech, dysarthria, right hemiplegia, and right facial weakness. ASSESSMENT: 1. Status post medullarly stroke, small-vessel disease. 2. For PEG tube today. 3. Dual antiplatelet therapy and statins. 4. Hypertension. 5. Hyperlipidemia. Recommend continue current treatment. Awaiting transfer to rehab. Damien Simpson MD AM/MODL /[id number]
--- NOTE | 2019-08-21 01:22 | Progress Note ---
DATE: 08/19/2019 SUBJECTIVE: The patient is same, aphasic, right paraplegia. Awaiting PEG tube placement. MEDICATIONS: Per SEP. OBJECTIVE: VITAL SIGNS: Temperature 98, respiratory rate 16, pulse rate 80, and blood pressure 120/61. HEAD AND NECK: No meningeal signs. LUNGS: Good air entry. NEUROLOGIC: Awake, aphasic, slurred speech , right hemiplegia, right facial weakness. ASSESSMENT: 1. Status post medullary stroke, small-vessel disease. 2. Antiplatelets, dual, aspirin and Plavix. 3. For PEG tube. 4. Statins. 5. Primary replacement. Recommend awaiting transfer to rehab. Damien Simpson MD AM/MODL /[id number]
[2019-08-21] MEDS ORDERED: ENOXAPARIN SOD INJ 40 MG/0.4 ML SYR SC STA (01:42)
[2019-08-21] MEDS: METOPROLOL TARTRATE INJ 1 MG/ML VIAL IV SCH ×6 (02:08→22:09)
[2019-08-21] MEDS: GUAIFENESIN 600 MG TAB PO SCH ×5 (04:49→22:31)
[2019-08-21 05:20] LABS: BASOPHILS # (AUTO) 0.1 (0.0-0.1); BASOPHILS % 0.5 % (0.0-1.0); EOSINOPHILS # (AUTO) 0.2 (0.0-0.4); EOSINOPHILS % 1.9 % (0.0-6.0); HEMATOCRIT 36.2 % (34.2-44.1); HEMOGLOBIN 11.5 g/dL (12.0-16.0); LYMPHOCYTES # (AUTO) 4.5 (1.0-3.2); LYMPHOCYTES % 41.5 % (18.0-39.1); MEAN CORPUSCULAR HEMOGLOBIN 29.8 pg (28-32); MEAN CORPUSCULAR HGB CONC 31.8 g/dL (31-35); MEAN CORPUSCULAR VOLUME 93.8 fL (81-99); MONOCYTES # (AUTO) 0.9 (0.2-0.8); MONOCYTES % 8.3 % (4.4-11.3); PLATELET COUNT 300 x10e3/uL (140-360); RED BLOOD COUNT 3.86 x10e6/uL (3.6-5.1); RED CELL DISTRIBUTION WIDTH 14.1 % (11.7-14.4)
[2019-08-21 05:44] LABS: ANION GAP 13.9 mmol/L (8-16); CALCIUM 9.1 mg/dL (8.4-10.2); CREATININE, SERUM 1.13 mg/dL (0.57-1.11); POTASSIUM 3.9 mmol/L (3.5-5.1)
[2019-08-21] MEDS: ALBUTEROL/IPRATROPIUM 3 ML NEB NEB SCH ×4 (06:38→19:50)
--- NOTE | 2019-08-21 07:00 | NUR ---
Received bedside report from ROD Spencer. Patient awake, resting at this time. Denies pain with no visible signs of distress or discomfort noted. Call light within reach.
[2019-08-21] MEDS: INSULIN LISPRO 100 UNIT/1 ML 3ML VIAL SQ SCH ×4 (07:30→20:57)
[2019-08-21] MEDS: PANTOPRAZOLE 40 MG 10ML VIAL IV SCH (08:36)
[2019-08-21] MEDS: DIGOXIN INJ 0.25 MG/ML 2 ML AMP IV SCH (08:37)
[2019-08-21] MEDS: DOCUSATE SODIUM LIQD 100 MG/10 ML UDC NG SCH ×2 (09:00→17:00)
[2019-08-21] MEDS: ENOXAPARIN SOD INJ 40 MG/0.4 ML SYR SC SCH (09:00)
[2019-08-21] MEDS: ASPIRIN 325 MG TAB PO SCH (09:00)
[2019-08-21] MEDS: FENOFIBRATE 48 MG TAB PO SCH (09:00)
[2019-08-21] MEDS: MINERAL OIL/PETROLAT/GLYCERI 2OZ CRM TOP SCH ×4 (09:41→20:57)
--- NOTE | 2019-08-21 17:00 | NUR ---
PT OFF THE FLOOR TO OR. ACCOMPANIED BY FAMILY MEMBER.
--- NOTE | 2019-08-21 18:40 | Consultation ---
DATE OF CONSULTATION: 08/21/2019 Cardiology Consultation REASON FOR CONSULTATION: New-onset paroxysmal atrial fibrillation and preoperative cardiovascular evaluation. HISTORY OF PRESENT ILLNESS: Ms. Kelsey is an 88-year-old lady with past medical history of hypertension, type 2 diabetes, anemia, prior history of advanced osteoporosis and vertebral compression fractures, who previously really was independent up until recent history. She has been traveling and doing activities in full independent and seem like she has reasonable nonfunctional capacity at baseline. In fact, she recently traveled to [facility] over a month and a half ago and had been doing okay, however, had some fatigue at times and was given IV antibiotic therapy. She came into this hospital and during this hospital, she was noted to have right-sided stroke symptoms with slurred speech and MRI scan of the brain showed diffusion restriction in the medullary and had medullary stroke. According to neuro, she has had previous old stroke with multiple bilateral lacunar infarcts. She also has a history of anemia as well. Essentially, she currently is trying to work with Physical Therapy to improve her mobility and work with them, however, still has significant right-sided body weakness. She has significant dysphagia and is unable to eat and has moderate protein-calorie malnutrition. She is in need for percutaneous PEG placement with EGD. She denies any history with anesthesia issues in the past. She cannot tell when her last surgery was, but does report a history of vertebroplasty operation in the past without difficulty and appendectomy in the remote past. Denies any chest pain or discomfort. Overnight, the patient had transient AFib and now is back in sinus rhythm. There is no known history of prior atrial fibrillation prior to this hospitalization. Long discussion in terms of cardiovascular risk and the patient is accepting any risk as she says she "needs to eat and have nutrition." PAST MEDICAL HISTORY: 1. Hypertension. 2. Type 2 diabetes. 3. Anemia. PAST SURGICAL HISTORY: 1. History of appendectomy. 2. History of vertebroplasty operation. FAMILY HISTORY: She is unaware of any family history of heart problems. SOCIAL HISTORY: She denies any smoking. Denies any alcohol or illicit drug use. She recreationally travels. ALLERGIES: NO KNOWN DRUG ALLERGIES. CURRENT MEDICATIONS: Include digoxin 0.125 mg daily p.r.n., metoprolol 5 mg q.4 hours, aspirin 325 mg daily, subcu Lovenox on hold for DVT prophylaxis, atorvastatin 20 mg daily, Protonix 40 mg daily, fenofibrate 40 mg daily, Zofran p.r.n., guaifenesin p.r.n. See electronic medical record for medications. REVIEW OF SYSTEMS: GENERAL: Denies any fevers, chills, or weight changes. HEENT: No headaches, visual complaints, sore throat, or stuffy nose. RESPIRATORY: Denies any pleuritic chest pain. Has occasional cough. CARDIOVASCULAR: Denies any subjective palpitations despite having an AFib episode yesterday. GI: Denies any abdominal pain, bright red blood per rectum, melena, or hematemesis. Does have dysphagia with her new stroke. : Denies any pyuria or dysuria. MUSCULOSKELETAL: Positive for right-sided body weakness. HEME: Positive for history of anemia. ENDOCRINE: Denies any heat or cold intolerance. NEUROLOGIC: Positive for right-sided body weakness, slurred speech, was well as dysphagia. No history of seizures. ENDOCRINE: Denies any heat or cold intolerance. Remainder of review of systems negative, otherwise mentioned. PHYSICAL EXAMINATION: VITAL SIGNS: Height of 64 inches, weight of 110 pounds. BMI is 18.9. Temperature of 96.8, pulse of 90, respiratory rate of 16, blood pressure of 128/78, O2 saturation 93% on room air. GENERAL: This is a frail lady, who is currently in no apparent distress. HEENT: Normocephalic and atraumatic. Pupils are equal, round, and reactive. Extraocular movements are intact. There is some facial droop noted from her stroke. CARDIOVASCULAR: Seems to be regular in rate and rhythm. Normal S1, S2. Soft 2/6 systolic ejection murmur at the right upper sternal border. LUNGS: Largely clear with notable significant kyphoscoliosis. BACK: No costovertebral angle tenderness. Does have significant kyphoscoliosis from compression fractures. ABDOMEN: Soft, nontender, nondistended. Normoactive bowel sounds. No hepatosplenomegaly. EXTREMITIES: Warm with trace edema. There is right arm and right leg weakness noted with 1+ pedal pulses. NEUROLOGIC: Right-sided body weakness, some slurring in her speech. Positive for gait abnormality. Remainder of review of systems is negative. LABORATORY DATA: White count 10.7, hemoglobin of 11.5, hematocrit of 36.2, and platelets of 300. Sodium 136, potassium 3.9, chloride 105, bicarb 21, BUN 27, creatinine of 1.13, glucose of 163. A1c was 7.3%. Troponins unremarkable. BNP is 83. Lipid profile shows an LDL of 117, HDL of 44. TSH is 1.416. EKG baseline shows normal sinus rhythm, LVH, and no ST-T wave changes and EKG showed AFib. This was on yesterday with ventricular response around 105 beats per minute. No significant ST-T wave changes. DIAGNOSES: 1. Acute stroke with significant right-sided body weakness and unfortunately has significant dysphagia and is developing protein and calorie malnutrition, is in need for feeding and medications and will need endoscopy and percutaneous PEG. 2. Preoperative cardiovascular clearance: [id number] risk for a relatively low-risk operation. 3. Paroxysmal atrial fibrillation instantly found on telemetry, new diagnosis, but suspect she has longstanding history of paroxysmal atrial fibrillation given her age. 4. Hypertension. 5. Hypercholesteremia. 6. Type 2 diabetes with A1c of 7.3%. PLAN/RECOMMENDATIONS: 1. From a cardiovascular standpoint, we will go ahead and clear the patient for endoscopy and PEG as this is a necessary operation and seems that she would likely tolerate this low-risk procedure and relatively informed for her. 2. Does have an echocardiogram done and read by Dr. Garcia from August 15, 2019, showing preserved left ventricular function with EF of 55%. 3. Okay with p.r.n. rate control therapy with digoxin and metoprolol. 4. Once the patient is healed from her PEG placement, may need to change her blood thinning level to one of oral anticoagulant therapies if okay and cleared by Neurology. 5. We will continue to follow this patient. Case discussed with anesthesiologist and staff. Thank you for this referral. MD QI Bear/KRUNAL /[id number]
--- NOTE | 2019-08-21 18:57 | NUR ---
PATIENT BACK TO ROOM FROM OR. PER DR. SOTO, NEETA AND PATIENT REFUSED EGD AND/OR PEG PLACEMENT. DR LITTLE TO BE NOTIFIED. PATIENT DENIES PAIN AT THIS TIME, IN STABLE CONDITION. NEETA AT BEDSIDE. CALL LIGHT WITHIN REACH. WILL ENDORSE REPORT TO ONCOMING NURSE.
[2019-08-21] MEDS: ATORVASTATIN 20 MG TAB PO SCH (20:02)
[2019-08-22] VITALS (8 sets, daily range): BP systolic 108–154; BP diastolic 74–92
[2019-08-22] MEDS: ALBUTEROL/IPRATROPIUM 3 ML NEB NEB SCH ×5 (00:25→23:50)
[2019-08-22] MEDS: METOPROLOL TARTRATE INJ 1 MG/ML VIAL IV SCH ×6 (02:01→22:10)
[2019-08-22] MEDS: GUAIFENESIN 600 MG TAB PO SCH ×4 (06:00→23:50)
[2019-08-22] MEDS: DEXTROSE 5%/0.9% SOD CHL 1,000 ML IV SCH (06:24)
[2019-08-22] MEDS: INSULIN LISPRO 100 UNIT/1 ML 3ML VIAL SQ SCH ×4 (07:30→21:00)
--- NOTE | 2019-08-22 07:30 | NUR ---
Received patient, alert and responsive, no apparent distress at this time, call light within reach, remains NPO, bed alarms in place, will monitor.
[2019-08-22 08:05] LABS: BASOPHILS % 0.5 % (0.0-1.0); EOSINOPHILS # (AUTO) 0.2 (0.0-0.4); EOSINOPHILS % 1.9 % (0.0-6.0); HEMATOCRIT 36.5 % (34.2-44.1); HEMOGLOBIN 11.6 g/dL (12.0-16.0); LYMPHOCYTES % 35.5 % (18.0-39.1); MEAN CORPUSCULAR HEMOGLOBIN 29.8 pg (28-32); MEAN CORPUSCULAR HGB CONC 31.8 g/dL (31-35); MEAN CORPUSCULAR VOLUME 93.8 fL (81-99); MONOCYTES # (AUTO) 0.8 (0.2-0.8); MONOCYTES % 9.4 % (4.4-11.3); NEUTROPHILS # (AUTO) 4.4 (2.1-6.9); NEUTROPHILS % 51.9 % (38.7-80.0); PLATELET COUNT 318 x10e3/uL (140-360); RED BLOOD COUNT 3.89 x10e6/uL (3.6-5.1)
[2019-08-22 08:31] LABS: ANION GAP 16.2 mmol/L (8-16); CREATININE, SERUM 1.17 mg/dL (0.57-1.11); POTASSIUM 4.2 mmol/L (3.5-5.1)
[2019-08-22] MEDS: ASPIRIN 325 MG TAB PO SCH (08:34)
[2019-08-22] MEDS: DOCUSATE SODIUM LIQD 100 MG/10 ML UDC NG SCH ×2 (08:34→16:14)
[2019-08-22] MEDS: MINERAL OIL/PETROLAT/GLYCERI 2OZ CRM TOP SCH ×4 (08:34→21:29)
[2019-08-22] MEDS: PANTOPRAZOLE 40 MG 10ML VIAL IV SCH (08:34)
[2019-08-22] MEDS: FENOFIBRATE 48 MG TAB PO SCH (09:00)
[2019-08-22] MEDS: DIGOXIN INJ 0.25 MG/ML 2 ML AMP IV SCH (09:18)
[2019-08-22] MEDS: ATORVASTATIN 20 MG TAB PO SCH (21:00)
--- NOTE | 2019-08-22 22:54 | Progress Note ---
DATE: 08/21/2019 SUBJECTIVE: The patient had atrial fibrillation around overnight. Cardiology was consulted. MEDICATIONS: Per SEP. OBJECTIVE: VITAL SIGNS: Temperature 98, respiratory rate 16, and pulse rate is regular at this time. NEUROLOGIC: Alert, slurred speech, dysarthria, right facial weakness, and right hemiplegia. ASSESSMENT: Newly diagnosed paroxysmal atrial fibrillation with small vessel ischemic stroke of the medulla and dense right hemiplegia. PLAN: Review of the finding on telemetry, she will probably need to be switched from dual anti-platelet therapy to long-term anticoagulation. She will not need both from a Neurology standpoint, antiplatelets and anticoagulation. She will need only anticoagulation long-term. Continue statins. Physical, occupational, and speech therapy and rehabilitation apparently. Damien Simpson MD AM/KRUNAL /[id number]
--- NOTE | 2019-08-22 22:59 | Progress Note ---
DATE: 08/22/2019 SUBJECTIVE: The patient refused a PEG tube placement. MEDICATIONS: Per SEP. PHYSICAL EXAMINATION: VITAL SIGNS: Afebrile, vital signs stable. NEUROLOGIC: Right hemiplegia and right facial weakness. ASSESSMENT: Status post medullarly stroke with dense hemiplegia. Refused PEG tube. Paroxysmal atrial fibrillation. Recommend switch antiplatelets to anticoagulation. Continue statins rehabilitation versus other placement. Damien Simpson MD AM/KRUNAL /[id number]
[2019-08-23 00:09] VITALS: BP 129/67
[2019-08-23] MEDS: METOPROLOL TARTRATE INJ 1 MG/ML VIAL IV SCH ×2 (01:57→05:18)
[2019-08-23] MEDS: DEXTROSE 5%/0.9% SOD CHL 1,000 ML IV SCH ×2 (02:15→17:30)
[2019-08-23 04:06] VITALS: BP 143/79
[2019-08-23] MEDS: GUAIFENESIN 600 MG TAB PO SCH ×5 (05:18→21:39)
[2019-08-23 05:58] LABS: BASOPHILS # (AUTO) 0.1 (0.0-0.1); BASOPHILS % 0.6 % (0.0-1.0); EOSINOPHILS # (AUTO) 0.1 (0.0-0.4); EOSINOPHILS % 1.7 % (0.0-6.0); HEMATOCRIT 34.1 % (34.2-44.1); HEMOGLOBIN 10.9 g/dL (12.0-16.0); LYMPHOCYTES # (AUTO) 3.1 (1.0-3.2); LYMPHOCYTES % 37.8 % (18.0-39.1); MEAN CORPUSCULAR HEMOGLOBIN 29.9 pg (28-32); MEAN CORPUSCULAR VOLUME 93.7 fL (81-99); MONOCYTES # (AUTO) 0.8 (0.2-0.8); MONOCYTES % 10.1 % (4.4-11.3); NEUTROPHILS % 49.1 % (38.7-80.0); PLATELET COUNT 336 x10e3/uL (140-360); RED BLOOD COUNT 3.64 x10e6/uL (3.6-5.1); RED CELL DISTRIBUTION WIDTH 13.8 % (11.7-14.4)
[2019-08-23 06:23] LABS: CALCIUM 8.6 mg/dL (8.4-10.2); CREATININE, SERUM 1.01 mg/dL (0.57-1.11)
[2019-08-23] MEDS: ALBUTEROL/IPRATROPIUM 3 ML NEB NEB SCH ×3 (06:48→19:50)
[2019-08-23] MEDS: INSULIN LISPRO 100 UNIT/1 ML 3ML VIAL SQ SCH ×4 (07:30→21:00)
[2019-08-23 08:08] VITALS: BP 124/69
[2019-08-23] MEDS: MINERAL OIL/PETROLAT/GLYCERI 2OZ CRM TOP SCH ×4 (09:00→21:38)
[2019-08-23] MEDS: FENOFIBRATE 48 MG TAB PO SCH (09:00)
[2019-08-23] MEDS: DOCUSATE SODIUM LIQD 100 MG/10 ML UDC NG SCH ×2 (09:00→17:00)
[2019-08-23] MEDS: ASPIRIN 325 MG TAB PO SCH (09:00)
[2019-08-23] MEDS: PANTOPRAZOLE 40 MG 10ML VIAL IV SCH (10:22)
[2019-08-23] MEDS ORDERED: DIGOXIN INJ 0.25 MG/ML 2 ML AMP IV PRN (10:30)
[2019-08-23] MEDS ORDERED: METOPROLOL TARTRATE INJ 1 MG/ML VIAL IV PRN (10:30)
[2019-08-23 11:36] VITALS: BP 139/80
--- NOTE | 2019-08-23 14:47 | NUR ---
Spoke to speech therapist s/p DEINZ. Patient has followed her swallow evaluation. Patient wants a peg tube placed but is also requesting NG tube placement in the mean time until NG tube can be placed. Paged Dr. Anirudh Mora for orders. Awaiting call back
--- NOTE | 2019-08-23 16:05 | NUR ---
Nutrition Intervention Note RD Recommendation(s) for Physician: -Continue TF of Glucerna 1.5 with goal rate of 40 mL/hr with a water flush of 100 mL q 4hrs or water flush per MD (provides 1440 kcal, 79 g protein, and 1329 mL water) - BG and insulin management per MD The patient meets criteria for MODERATE protein-calorie malnutrition. Plan of Care: RD following, monitoring for tolerance and adequacy Nutrition reason for involvement: follow up RD Assessment 08/23: Follow up. Pt out of room for MBS at time of visit, 3rd MBS since admit per RN. Pt discussed during am rounds, pt refused EGD and PEG last Friday and per family service assistant reporting pt able to swallow. RN to reiterate silent aspiration. MBS results pending. Current TF remains appropriate, previously tolerating at goal. Will continue to montior. 08/18: Pt seen for follow up, non-verbal at time of visit and no family present. Pt on TF via NGT at goal rate of 40 ml/hr- tolerating per RN. Pt discussed during am rounds, PEG placement remains pending. Chart reviewed. Will continue to monitor. (08/13/19) Pt was admitted with leukocytosis, UTI, and weakness. A barium swallow test was performed. ST declared pt was silently aspirating and has mild/moderate oral dysphagia and moderate pharyngeal dysphagia. Therefore, ST recommended alternative means of nutrition. Recommend enteral nutrition as medically appropriate and provided RN with recommendations. Pt reports eating <50% of meals prior to admission for 1 month. Pt mentioned she had lost wt but was unsure of the amount or her usual weight. No N/V noted. Will continue to monitor. Principal Problems/Diagnoses: leukocytosis, UTI, and weakness PMH: HTN, diabetes, and anemia GI: LBM / (per flow sheet) Skin: intact Labs: 08/23: Na 138, K 4, BUN 24, Cr 1.01, Gluc 111, POC Gluc 89-193 Meds: humalog, colace, protonix, tricor, digoxin, zofran Ht: 64 inches (per pt) Wt: 110 lbs BMI: 18.9 kg/m2 IBW: 120 lbs Malnutrition Evaluation (08/13/19) The patient meets criteria for MODERATE protein-calorie malnutrition. Energy intake: <75% of estimated energy requirements for 1 month Weight loss: Unable to assess Fat loss: mild/moderate tricep region Muscle loss: Moderate clavicle region, mild- temporal region Supporting Evidence: Fluid accumulation: unable to evaluate Functional Status: unable to evaluate Nutrition Prescription (Diet Order): Glucerna 1.5 at 40 ml/hr Estimated Nutritional Needs: 4378-7844 calories/day (25-30 kcal/kg CBW) 50-75g protein/day (1-1.5 g pro/kg CBW) Diet Adequacy: Meeting calorie needs, Meeting protein needs Tolerance: Tolerating TF Diet Education Needs Assessment: Diet education not indicated. Nutrition Care Level: moderate Nutrition Diagnosis: Moderate protein kcal malnutrition related to h/o inadequate oral intake as evidenced by pt meeting <75% of estimated energy needs for 1 month and muscle/fat depletion. Goal: Patient will meet 75-100% of estimated needs by follow up Progress: goal met- TF Interventions: -TF Composition, Rate, Route, Collaboration with other providers Monitoring/Evaluation: -Total energy intake, Total protein intake, Formula/Solution, Weight change Signed: Linda Maurer RD, LD, [facility]
[2019-08-23 16:10] VITALS: BP 148/105
--- NOTE | 2019-08-23 17:34 | Diagnostic Imaging Report ---
Exam: Modified barium swallow Clinical history: Aspiration Total fluoroscopy time 4.4 minutes Total image 30 Findings: Modified barium swallow was performed by the speech pathologist. Radiologist was not present during the evaluation. Please refer to the speech pathology report for further details. Signed by: Dr. Hayden Short MD on 08/23/2019 5:32 PM
--- NOTE | 2019-08-23 19:00 | NUR ---
RECEIVED PATIENT IN BEDSIDE SHIFT REPORT. PATIENT RESTING IN BED AT THIS TIME. A&OX2-3, ACKNOWLEDGES VERBAL STIMULI. O2@3L NC. R FA20G RUNNING D5NS@50ML/HR. TELE MONITOR ACTIVE. PURE WICK IN PLACE, WILL MONITOR TO ENSURE IT IS WORKING. NO S&S OF DISTRESS NOTED. BED LOCKED IN LOWEST POSITION, SIDE RIALS UPX2, CALL LIGHT IN REACH.
[2019-08-23] MEDS: ATORVASTATIN 20 MG TAB PO SCH (20:21)
[2019-08-23 21:23] VITALS: BP 150/87
[2019-08-24] VITALS (9 sets, daily range): BP systolic 114–161; BP diastolic 67–90
[2019-08-24] MEDS: ALBUTEROL/IPRATROPIUM 3 ML NEB NEB SCH ×4 (00:30→19:15)
--- NOTE | 2019-08-24 02:03 | NUR ---
TELEPHONE CONSENT WITH PRANEETH TRINIDAD OBTAINED AT THIS TIME, CONFIRMED BY MARIA GUADALUPE RN.
--- NOTE | 2019-08-24 04:59 | NUR ---
PATIENT CHANGED AND TURNED AT THIS TIME. PURE WICK WAS NOT WORKING, REMOVED. NEW ALLEVYN PATCH APPLIED TO SACRUM, BLANCHABLE REDNESS, NO SKIN LOSS CONTINUES TO BE NOTED. PATIENT ABLE TO HELP TURN WITH LEFT ARM AND LEG. PATIENT TALKATIVE AND WHILE SPEECH WAS SLIGHTLY SLURRED, IT WAS CLEARLY UNDERSTANDABLE. WILL CONTINUE TO MONITOR.
[2019-08-24] MEDS: INSULIN LISPRO 100 UNIT/1 ML 3ML VIAL SQ SCH ×4 (08:00→21:29)
[2019-08-24] MEDS: DOCUSATE SODIUM LIQD 100 MG/10 ML UDC NG SCH ×2 (09:00→16:08)
[2019-08-24] MEDS: FENOFIBRATE 48 MG TAB PO SCH (09:00)
[2019-08-24] MEDS: ASPIRIN 325 MG TAB PO SCH (09:00)
[2019-08-24] MEDS: MINERAL OIL/PETROLAT/GLYCERI 2OZ CRM TOP SCH ×4 (09:00→21:29)
[2019-08-24] MEDS: PANTOPRAZOLE 40 MG 10ML VIAL IV SCH (10:28)
--- NOTE | 2019-08-24 10:58 | Progress Note ---
DATE: 08/24/2019 SUBJECTIVE: The patient is awake, but still has right hemiparesis. She is not febrile. PHYSICAL EXAMINATION: VITAL SIGNS: Stable. CARDIAC: Reveals regular rate and rhythm with normal S1 and S2. LUNGS: Auscultation of lungs reveals decreased breath sounds at the bases. There is no wheezing. ABDOMEN: Soft, nontender. There is no rebound or guarding. IMPRESSION: 1. Acute cerebrovascular accident. 2. Recurrent dysphagia. 3. Aspiration pneumonia. 4. Diabetes. PLAN: 1. Continue current anti-platelet regimen. 2. Enteral feedings. 3. Complete antibiotics. 4. Discussed disposition with Dr. Hart and Case Management. Too Davis MD Efrem/KRUNAL /[id number]
[2019-08-24] MEDS: GUAIFENESIN 600 MG TAB PO SCH ×3 (12:00→21:30)
--- NOTE | 2019-08-24 15:50 | NUR ---
Patient arrived back to floor from s/p PEG tibe placement. Per Dr. Anirudh Mora , peg tube to gravity x 24 hours.
--- NOTE | 2019-08-24 16:41 | Diagnostic Imaging Report ---
Chest, portable AP view History: Pneumonia Comparison: CT of the chest dated 08/14/2019 IMPRESSION: The cardiomediastinal silhouette is within normal limits. There is no focal consolidation, sizable pleural effusion, or pneumothorax. Remote right clavicle fracture deformity is noted. Signed by: Cruz Willingham MD on 08/24/2019 4:39 PM
[2019-08-24] MEDS: DEXTROSE 5%/0.9% SOD CHL 1,000 ML IV SCH (17:00)
[2019-08-24] MEDS ORDERED: PROPOFOL IV EMULSION 10 MG/ML 50 ML VIAL ONE (18:38)
--- NOTE | 2019-08-24 19:00 | NUR ---
RECEIVED PATIENT IN BEDSIDE SHIFT REPORT. PATIENT RESTING IN BED AT THIS TIME. A&OX3. NO PAIN REPORTED AT THIS TIME. ABDOMINAL BINDER IN PLACE. PEG TUBE PATENT AND DRAINING TO GRAVITY FOR 24 HOURS PER MD Anirudh SOTO. ALTERNATING PRESSURE PUMP ACTIVE. BED ALARM ON. IV TO R FA 20G ASYMPTOMATIC, INTACT AND PATENT RUNNING D5NS AT 50ML/HR. FAMILY MEMBER AT BEDSIDE. BED LOCKED IN LOWEST POSITION, SIDE RAILS UPX2, CALL LIGHT IN REACH.
[2019-08-24] MEDS: ATORVASTATIN 20 MG TAB PO SCH (19:46)
--- NOTE | 2019-08-24 22:23 | Operative Report ---
DATE OF PROCEDURE: 08/24/2019 SURGEON: Dwayne Mora MD PROCEDURES: EGD with PEG tube placement. INDICATIONS FOR PROCEDURE: The patient is status post CVA, oropharyngeal dysphagia. Abnormal modified barium swallow. MEDICATIONS: The patient was done under MAC. Please see anesthesiologist's note. PROCEDURE IN DETAIL: With the patient in the supine position, a flexible fiberoptic Olympus gastroscope was introduced into the esophagus under direct visualization without any difficulty. The scope was then advanced with ease into the stomach traversing a small sliding hiatal hernia. Mucosa overlying the antrum and the body revealed some patchy erythema. Pylorus was intubated with ease and the scope was advanced all the way to the second portion of the duodenum. The scope was then withdrawn slowly mucosa overlying the proximal second portion as well as the duodenal bulb appeared to be within normal limits. The scope was then withdrawn back into the stomach and retroflexed mucosa overlying the fundus appeared to be within normal limits. The previously described hiatal hernia was also noted in the retroflexed position. The scope was then straightened out after delineating a safe entry point through external digital palpation and transabdominal illumination. PEG tube insertion was carried out in the usual fashion. The scope was subsequently withdrawn after documenting a good positioning of the intragastric bumper. The scope was subsequently withdrawn. The patient tolerated the procedure well. IMPRESSION: 1. Mild distal esophagitis. 2. Small hiatal hernia. 3. Gastritis, mild. 4. PEG tube insertion carried out in the usual fashion. The patient tolerated the procedure well. G-tube to drain to gravity x24 hours then can use. Please apply an abdominal binder. MD EMI Perales/KRUNAL /[id number] cc: Avelino Hart MD
[2019-08-25] VITALS (8 sets, daily range): BP systolic 145–165; BP diastolic 75–93
[2019-08-25] MEDS: ALBUTEROL/IPRATROPIUM 3 ML NEB NEB SCH ×3 (01:45→13:48)
[2019-08-25 05:24] LABS: BASOPHILS % 0.4 % (0.0-1.0); EOSINOPHILS # (AUTO) 0.1 (0.0-0.4); EOSINOPHILS % 1.3 % (0.0-6.0); HEMATOCRIT 33.5 % (34.2-44.1); HEMOGLOBIN 10.7 g/dL (12.0-16.0); LYMPHOCYTES # (AUTO) 2.5 (1.0-3.2); LYMPHOCYTES % 31.4 % (18.0-39.1); MEAN CORPUSCULAR HEMOGLOBIN 29.8 pg (28-32); MEAN CORPUSCULAR HGB CONC 31.9 g/dL (31-35); MEAN CORPUSCULAR VOLUME 93.3 fL (81-99); MONOCYTES # (AUTO) 0.8 (0.2-0.8); MONOCYTES % 10.4 % (4.4-11.3); NEUTROPHILS # (AUTO) 4.4 (2.1-6.9); PLATELET COUNT 394 x10e3/uL (140-360); RED BLOOD COUNT 3.59 x10e6/uL (3.6-5.1)
[2019-08-25 05:42] LABS: ANION GAP 13.7 mmol/L (8-16); CREATININE, SERUM 1.01 mg/dL (0.57-1.11); POTASSIUM 3.7 mmol/L (3.5-5.1)
[2019-08-25] MEDS: GUAIFENESIN 600 MG TAB PO SCH ×3 (06:00→18:00)
--- NOTE | 2019-08-25 06:04 | NUR ---
order recieved to discontinue ryan catheter. supplies gathered and brought to patient room. Ryan catheter emptied and statlock removed. ryan catheter discontinued, catheter tip was intact, patient tolerated well. discussed with patient time he is due to void by 1200. ryan placed in red bag and disposed of.
--- NOTE | 2019-08-25 06:37 | NUR ---
STORM SOTO FOR CLARIFICATION ON TUBE FEED ORDER. AWAITING CALL BACK.
--- NOTE | 2019-08-25 07:00 | NUR ---
BEDSIDE SHIFT REPORT RECEIVED FROM THE PREVIOUS SHIFT RN. EDUCATED PATIENT ABOUT FALL PRECAUTIONS. CALL LIGHT IN EASY REACH. INSTRUCTED PATIENT TO USE CALL LIGHT FOR ANY NEEDS. PATIENT VERBALIZE UNDERSTANDING. BED IS LOW, WHEELS LOCKED, SIDE RAILS UP X2 FOR SAFETY. PT DENIES NEEDS AT THIS TIME
[2019-08-25] MEDS: INSULIN LISPRO 100 UNIT/1 ML 3ML VIAL SQ SCH ×3 (08:10→16:30)
[2019-08-25] MEDS: ASPIRIN 325 MG TAB PO SCH (09:00)
[2019-08-25] MEDS: DOCUSATE SODIUM LIQD 100 MG/10 ML UDC NG SCH ×2 (09:00→17:04)
[2019-08-25] MEDS: FENOFIBRATE 48 MG TAB PO SCH (09:00)
[2019-08-25] MEDS: PANTOPRAZOLE 40 MG 10ML VIAL IV SCH (09:02)
[2019-08-25] MEDS: MINERAL OIL/PETROLAT/GLYCERI 2OZ CRM TOP SCH ×3 (09:07→18:09)
[2019-08-25] MEDS: DEXTROSE 5%/0.9% SOD CHL 1,000 ML IV SCH (14:24)
--- NOTE | 2019-08-25 15:54 | NUR ---
INPATIENT REHAB DISCHARGE INFORMATION PATIENT HAS BEEN ACCEPTED TO: [address] [place] [address] ACCEPTING OFFICE ENGINEER: Brooklyn Martinez ACCEPTING MD: Dr. Lan Potter ROOM: will be assigned on report NURSE CALL REPORT TO: [phone] THE FOLLOWING DOCUMENTS MUST ACCOMPANY PATIENT FOR TRANSFER: copy of chart. 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 ROD Velasco and NATHAN Ricardo were informed of MOT.
[2019-08-25] MEDS ORDERED: ASPIRIN325 MG PO (16:13)
[2019-08-25] MEDS ORDERED: BENADRYL PO (16:13)
[2019-08-25] MEDS ORDERED: NYST PO (16:13)
[2019-08-25] MEDS ORDERED: MAALOX PO (16:13)
[2019-08-25] MEDS ORDERED: Ondansetron Oral Disintegratin PO (16:13)
[2019-08-25] MEDS ORDERED: COLACE100 MG/10 NG (16:13)
[2019-08-25] MEDS ORDERED: Metoprolol Tartrate Inj IV (16:13)
[2019-08-25] MEDS ORDERED: Chloraseptic MM (16:13)
[2019-08-25] MEDS ORDERED: PROTONIX IV40 MG IV (16:13)
[2019-08-25] MEDS ORDERED: MUCINEX600 MG PO (16:13)
[2019-08-25] MEDS ORDERED: ACETAMINOPHEN325 M1 PO (16:13)
[2019-08-25] MEDS ORDERED: [UNRECOGNIZED DRUG - OTHER] TOP (16:13)
[2019-08-25] MEDS ORDERED: Insulin Lispro SQ (16:13)
[2019-08-25] MEDS ORDERED: LIPITOR20 MG PO (16:13)
[2019-08-25] MEDS ORDERED: DEXTROSE 50%-WA50 M1 IV (16:13)
[2019-08-25] MEDS ORDERED: TRICOR48 MG PO (16:13)
[2019-08-25] MEDS ORDERED: DIGOXIN250 MCG/1 IV (16:13)
[2019-08-25] MEDS ORDERED: LIDOCAINE PO (16:13)
[2019-08-25] MEDS ORDERED: Albuterol/Ipratropium Nebulize NEB (16:13)
--- NOTE | 2019-08-25 18:31 | NUR ---
report called to [place] at [facility]. He states they are ready to accept patient to their care. Ambulance to transfer
--- NOTE | 2019-08-26 09:24 | Discharge Summary ---
CONSULTING PHYSICIANS: Include: 1. Dr. Damien Simpson with Neurology. 2. Dr. Lani Mesa with Cardiology. 3. Dr. Too Davis with Pulmonology. 4. Dr. Dwayne Mora with Gastroenterology. PERTINENT HISTORY AND PHYSICAL FINDINGS: The patient does not have a PCP. Her chief complaint was cough and flu. She is 88-year-old female, who flew in on August 12 from [facility] with diagnosis from the physician in [facility] of influenza with pneumonia. However, in the Emergency Department at [facility], the chest x-ray, influenza A and B and strep were all negative for Strep or pneumonia. The patient did report yellow phlegm. She denied any contact with sick individuals. PAST MEDICAL HISTORY: Hypertension, diabetes, and urinary tract infections. PAST SURGICAL HISTORY: Appendectomy and back surgery. FAMILY HISTORY: Denies any health problems with her mother and father. SOCIAL HISTORY: Denies any history of tobacco, alcohol, or illicit drugs. ALLERGIES: NO KNOWN DRUG ALLERGIES. ADMITTING DIAGNOSES: Included: 1. Sepsis due to urinary tract infection, present on arrival. 2. Acute urinary tract infection with hematuria and cystitis. 3. Controlled hypertension. 4. Uncontrolled type 2 diabetes mellitus with hyperglycemia. On admission, sodium 135, potassium 4.6, chloride 101, CO2 of 22, BUN 41, creatinine 1.28, glucose 215, estimated GFR 39. WBC 16.2, hemoglobin 12.4, hematocrit 37.7, platelets 271. Total protein 6.2, albumin 3.2, total bilirubin 0.4, AST 14, ALT 9, alkaline phosphatase 50, lactic acid 1.2. Urinalysis showed trace amount of protein, rbc's 6-10, wbc's 6-10, moderate bacteria. Influenza A and B were negative. Group A Strep was negative. Throat culture and sensitivity and blood culture and sensitivity were collected. Throat culture showed usual respiratory omayra present. The final results from both blood cultures showed no growth after 5 days. Urine culture showed no growth after 36-48 hours. Evidently, the patient had a massive tissue come from the throat that she coughed up. This was sent for pathology per request from [facility] Chin II. The soft tissue expectorated material was shown to be mucus coated partially autolyzed food bolus with inflammatory infiltrate. Histologic sections confirm gross impression expectorated tissue 3.0 x 2.2 x 0.4 cm triangular partially digested muscle tissue suggestive of food bolus. During her stay, moderate protein-calorie malnutrition was added to her list of diagnoses. On August 14, facial drooping was noted per the caregiver and at that time, CT of the chest and CT of the brain were ordered. The initial CT of the brain showed no acute intracranial abnormalities. Severe supratentorial chronic microvascular ischemic change. 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 The CT of the chest without contrast showed no acute CT finding. Later that same day, a brain MRI showed new acute nonhemorrhagic left paramedian medulla infarct when compared to prior brain MRI dated 12/03/2018, unchanged severe chronic microvascular ischemic change and moderate volume loss, unchanged chronic lacunar infarcts. This acute stroke was added to her list of diagnoses. 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 The patient had multiple modified barium swallow studies during her stay and failed 3 modified barium swallows. No focal consolidation on portable chest x-ray done on August 24. It was decided that the patient had aspiration pneumonia, which was added to her list of diagnoses. She was put on IV Rocephin and Flagyl, nebulized treatments and guaifenesin. Pulmonology was consulted and followed. The patient remained n.p.o. with neuromuscular electrical stimulation for speech therapy until her PEG tube could be placed, which was inserted on August 24. The patient was seen by registered dietitian and recommendations were made for continues tube feeding and Glucerna 1.5 with a goal rate of 40 mL/h with water flush 100 mL every 4 hours, which would provide 1440 kilocalories, 79 g of protein, and 1329 mL of water. BMI 18.9 kg/m2. Physical therapy followed for ambulatory dysfunction and another addition to her list of diagnoses. Today the day of discharge, sodium 141, potassium 3.7, chloride 108, CO2 of 23, BUN 17, creatinine 1.01. Glucose 152. WBC 7.9, hemoglobin 10.7, hematocrit 33.5, platelets 394. Several of her home medications such as lisinopril, oral diabetic medications, omeprazole, calcium were all held. She does have some possible chronic kidney disease. She is currently on oxygen at 2 L via nasal cannula. Lungs are clear with diminished bases. She is awake, alert, oriented. Atrial fibrillation, which is another addition to her list of diagnoses and she is on digoxin 0.125 mg daily for that. She was lethargic earlier this morning, however, has perked up considerably since her physical therapy. She denies any sore throat or mouth ulcers. Good bowel sounds. Rhythm irregularly irregular. Her discharge disposition is [facility] in [place]. She is to continue on the aforementioned tube feedings and advance as tolerated to the goal rate of 40 mL/h. Activity level as tolerated. Follow up with the accepting physician, Dr. Bharath Potter. Continue all her current medications as she is utilizing in the hospital. She is on aspirin 325 mg daily for the new stroke. She completed her IV antibiotics for aspiration pneumonia and remains on nebulized treatments. Dictated by Davion Thao NP Avelino Hart MD HWP/MODL /[id number]
== END 2019-08-25 19:42 | DRG 871 ==
LOC: ER 09:08 → ERHOLD 13:26 → MED/SURG2 17:25 → OBSVTOIN 08-13 13:06 → ICU 08-14 21:31 → MED/SURG2 08-17 15:26
PROVIDERS: ADMIT Internal Medicine; ATTEND Internal Medicine
PROC: 0DH68UZ Insertion of Feeding Device into Stomach, Via Natural or Artificial Opening Endoscopic (ICD-10-PCS; 2019-08-24)
PROC: 0DJ08ZZ Inspection of Upper Intestinal Tract, Via Natural or Artificial Opening Endoscopic (ICD-10-PCS; principal; 2019-08-24 15:00)
DX: A41.9 Sepsis, unspecified organism (principal); I63.9 Cerebral infarction, unspecified; J69.0 Pneumonitis due to inhalation of food and vomit; E44.0 Moderate protein-calorie malnutrition; Z68.1 Body mass index [BMI] 19.9 or less, adult; N17.9 Acute kidney failure, unspecified; N30.01 Acute cystitis with hematuria; M80.08XA Age-related osteoporosis with current pathological fracture, vertebra(e), initial encounter for fracture; G81.91 Hemiplegia, unspecified affecting right dominant side; E87.1 Hypo-osmolality and hyponatremia; E78.5 Hyperlipidemia, unspecified; N18.3 Chronic kidney disease, stage 3 (moderate); E11.65 Type 2 diabetes mellitus with hyperglycemia; Z86.73 Personal history of transient ischemic attack (TIA), and cerebral infarction without residual deficits; I65.21 Occlusion and stenosis of right carotid artery; I65.02 Occlusion and stenosis of left vertebral artery; I48.0 Paroxysmal atrial fibrillation; R13.12 Dysphagia, oropharyngeal phase; K20.9 Esophagitis, unspecified; K44.9 Diaphragmatic hernia without obstruction or gangrene; R26.9 Unspecified abnormalities of gait and mobility; I69.322 Dysarthria following cerebral infarction; I12.9 Hypertensive chronic kidney disease with stage 1 through stage 4 chronic kidney disease, or unspecified chronic kidney disease
CPT/HCPCS: 36415; 43246; 70450; 70496; 70498; 70551; 71045; 71046; 71250; 74018; 74230; 80048; 80053; 80061; 81001; 82140; 82550; 82553; 82948; 83036; 83518; 83605; 83735; 83880; 84100; 84443; 84484; 85025; 87040; 87070; 87086; 87400; 88304; 93005; 93306; 93970; 94640; 96361; 96372; 97139; 99283; G0378; J0360; J0692; J0696; J1160; J1650; J7030; J7042; J7050; J7799; Q9967